=== PATIENT | male | born 1985 | race Caucasian/White ===

== ENCOUNTER 2018-09-05 23:43 | Emergency (ER) | payer BC ==
[2018-09-06 00:31] LABS: ABS Basophils 0 10^3/ul (0-0.2); ABS Eosinophils 0.1 10^3/ul (0-0.6); ABS Lymphocytes 1.9 10^3/ul (1.0-4.8); ABS Monocytes 0.5 10^3/ul (0-0.8); ABS Neutrophils 2.6 10^3/ul (1.5-7.7); ABS Nucleated RBC 0 10^3/ul; Eosinophil % 1.4 %; Hematocrit 41 % (42-52); Lymphocyte % 36.8 %; Mean Corpuscular HGB Conc 34 g/dl (31-36); Mean Corpuscular Hemoglobin 32 pg (27-31); Mean Corpuscular Volume 93 fL (80-94); Mean Platelet Volume 8.9 fL (7.4-10.4); Nucleated Red Blood Cells % 0.4; Platelet Count 263 10^3/ul (150-450); Red Blood Count 4.36 10^6/ul (4.00-5.40); Red Cell Distribution Width 13 % (10.5-15)
[2018-09-06 00:32] LABS: INR 0.94 (0.77-1.02)
[2018-09-06 00:35] LABS: EGFR Non-African American 89.1 (>60)
[2018-09-06] MEDS ORDERED: LORazepam TAB(*) 1 MG PO ONE (01:23)
--- NOTE | 2018-09-06 02:29 | ED ---
HPI Chest Pain - HPI Summary HPI Summary: The pt is a 33 y.o male presenting to the [facility] with a chief complaint of chest pain. The pt was accompanied by a female blocker polishing. He states the onset of the chest pain was at 2230. PMHx includes prehypertension. He denies PMHx of other cardiac diseases. The chest pain is discrete at the sternum. He has a hx of anxiety and has been on antidepressants previously. The patient denies SI and HI. No hx of smoking was reported and no use of recreational drug was reported as well. No major surgeries in the past were reported as well. Symptoms are aggravated by nothing and symptoms are alleviated by nothing. - History of Current Complaint Chief Complaint: EDChestWallPain Time Seen by Provider: 09/05/18 23:57 Hx Obtained From: Patient Onset/Duration: Started Hours Ago Initial Severity: Mild Current Severity: Mild Pain Intensity: 2 Pain Scale Used: 0-10 Numeric Chest Pain Location: Mid Sternal Aggravating Factor(s): Nothing Alleviating Factor(s): Nothing Associated Signs and Symptoms: Positive: Chest Pain, Anxiety, Shortness of Breath - Allergy/Home Medications Allergies/Adverse Reactions: Allergies Allergy/AdvReac Type Severity Reaction Status Date / Time MS Penicillins [Penicillins] Allergy Hives Verified 09/05/18 23:50 PMH/Surg Hx/FS Hx/Imm Hx Endocrine/Hematology History: Denies: Hx Diabetes, Hx Thyroid Disease Cardiovascular History: Denies: Hx Hypertension Respiratory History: Denies: Hx Asthma, Hx Chronic Obstructive Pulmonary Disease (COPD) GI History: Denies: Hx Ulcer - Surgical History Surgery Procedure, Year, and Place: wisdon teeth extraction - Immunization History Date of Tetanus Vaccine: UTD Infectious Disease History: No Infectious Disease History: Denies: Hx Hepatitis, Hx Human Immunodeficiency Virus (HIV), Traveled Outside the US in Last 30 Days - Family History Family History: Per EMR from May 2015, negative cardiac/dm/htn - Social History Alcohol Use: None Hx Substance Use: No Substance Use Type: Reports: None Hx Tobacco Use: Yes Smoking Status (MU): Former Smoker Type: Smokeless Tobacco Review of Systems Constitutional: Negative Eyes: Negative ENT: Negative Positive: Chest Pain Positive: Shortness Of Breath Gastrointestinal: Negative Genitourinary: Negative Musculoskeletal: Negative Skin: Negative Neurological: Negative Psychological: Other - Negative SI and HI All Other Systems Reviewed And Are Negative: Yes Physical Exam - Summary Physical Exam Summary: GENERAL: Patient is a well-developed and nourished Male who is lying comfortable in the stretcher. Patient is not in any acute respiratory distress. Flat Affect HEAD AND FACE: Normocephalic EYES: PERRLA, EOMI x 2. EARS: Hearing grossly intact. MOUTH: Oropharynx within normal limits. NECK: Supple, trachea is midline, no adenopathy, no JVD, no carotid bruit. CHEST: Symmetric, no tenderness at palpation LUNGS: Clear to auscultation bilaterally. No wheezing or crackles. CVS: Regular rate and rhythm, S1 and S2 present, no murmurs or gallops appreciated. ABDOMEN: Soft, non-tender. Bowel sounds are normal. No abdominal abnormal pulsations. EXTREMITIES: Full ROM in all major joints, no edema, no cyanosis or clubbing. NEURO: Alert and oriented x 3. No acute neurological deficits. Speech is normal and follows commands. SKIN: Dry and warm Triage Information Reviewed: Yes Vital Signs On Initial Exam: Initial Vitals Temp Pulse Resp BP Pulse Ox 98.4 F 70 18 159/102 98 09/05/18 23:47 09/05/18 23:47 09/05/18 23:47 09/05/18 23:47 09/05/18 23:47 Vital Signs Reviewed: Yes Diagnostics - Vital Signs Vital Signs Temp Pulse Resp BP Pulse Ox 09/06/18 01:37 16 09/06/18 01:01 69 134/95 96 09/06/18 01:00 70 96 09/06/18 00:31 72 140/97 97 09/06/18 00:02 80 99 09/06/18 00:01 159/114 09/05/18 23:47 98.4 F 70 18 159/102 98 - Laboratory Lab Results: Lab Results 09/06/18 09/06/18 09/06/18 Range/Units 00:08 00:08 00:08 WBC 5.0 (3.5-10.8) 10^3/ul RBC 4.36 (4.00-5.40) 10^6/ul Hgb 14.0 (14.0-18.0) g/dl Hct 41 L (42-52) % MCV 93 (80-94) fL MCH 32 H (27-31) pg MCHC 34 (31-36) g/dl RDW 13 (10.5-15) % Plt Count 263 (150-450) 10^3/ul MPV 8.9 (7.4-10.4) fL Neut % (Auto) 52.0 % Lymph % (Auto) 36.8 % Wayne % (Auto) 9.0 % Eos % (Auto) 1.4 % Baso % (Auto) 0.8 % Absolute Neuts (auto) 2.6 (1.5-7.7) 10^3/ul Absolute Lymphs (auto) 1.9 (1.0-4.8) 10^3/ul Absolute Monos (auto) 0.5 (0-0.8) 10^3/ul Absolute Eos (auto) 0.1 (0-0.6) 10^3/ul Absolute Basos (auto) 0 (0-0.2) 10^3/ul Absolute Nucleated RBC 0 10^3/ul Nucleated RBC % 0.4 INR (Anticoag Therapy) (0.77-1.02) APTT (26.0-36.3) seconds Sodium 137 (135-145) mmol/L Potassium 3.3 L (3.5-5.0) mmol/L Chloride 106 (101-111) mmol/L Carbon Dioxide 25 (22-32) mmol/L Anion Gap 6 (2-11) mmol/L BUN 22 (6-24) mg/dL Creatinine 0.97 (0.67-1.17) mg/dL Est GFR ( Amer) 107.9 (>60) Est GFR (Non-Af Amer) 89.1 (>60) BUN/Creatinine Ratio 22.7 H (8-20) Glucose 153 H (70-100) mg/dL Lactic Acid 0.7 (0.5-2.0) mmol/L Calcium 9.3 (8.6-10.3) mg/dL Magnesium 2.1 (1.9-2.7) mg/dL Total Bilirubin 0.40 (0.2-1.0) mg/dL AST 19 (13-39) U/L ALT 17 (7-52) U/L Alkaline Phosphatase 50 (34-104) U/L Troponin I 0.00 (<0.04) ng/mL Total Protein 6.6 (6.4-8.9) g/dL Albumin 4.5 (3.2-5.2) g/dL Globulin 2.1 (2-4) g/dL Albumin/Globulin Ratio 2.1 (1-3) 09/06/18 Range/Units 00:08 WBC (3.5-10.8) 10^3/ul RBC (4.00-5.40) 10^6/ul Hgb (14.0-18.0) g/dl Hct (42-52) % MCV (80-94) fL MCH (27-31) pg MCHC (31-36) g/dl RDW (10.5-15) % Plt Count (150-450) 10^3/ul MPV (7.4-10.4) fL Neut % (Auto) % Lymph % (Auto) % Wayne % (Auto) % Eos % (Auto) % Baso % (Auto) % Absolute Neuts (auto) (1.5-7.7) 10^3/ul Absolute Lymphs (auto) (1.0-4.8) 10^3/ul Absolute Monos (auto) (0-0.8) 10^3/ul Absolute Eos (auto) (0-0.6) 10^3/ul Absolute Basos (auto) (0-0.2) 10^3/ul Absolute Nucleated RBC 10^3/ul Nucleated RBC % INR (Anticoag Therapy) 0.94 (0.77-1.02) APTT 30.1 (26.0-36.3) seconds Sodium (135-145) mmol/L Potassium (3.5-5.0) mmol/L Chloride (101-111) mmol/L Carbon Dioxide (22-32) mmol/L Anion Gap (2-11) mmol/L BUN (6-24) mg/dL Creatinine (0.67-1.17) mg/dL Est GFR ( Amer) (>60) Est GFR (Non-Af Amer) (>60) BUN/Creatinine Ratio (8-20) Glucose (70-100) mg/dL Lactic Acid (0.5-2.0) mmol/L Calcium (8.6-10.3) mg/dL Magnesium (1.9-2.7) mg/dL Total Bilirubin (0.2-1.0) mg/dL AST (13-39) U/L ALT (7-52) U/L Alkaline Phosphatase (34-104) U/L Troponin I (<0.04) ng/mL Total Protein (6.4-8.9) g/dL Albumin (3.2-5.2) g/dL Globulin (2-4) g/dL Albumin/Globulin Ratio (1-3) Result Diagrams: 09/06/18 00:08 09/06/18 00:08 Lab Statement: Any lab studies that have been ordered have been reviewed, and results considered in the medical decision making process. - Radiology Chest X-ray Summary of Radiographic Findings: Chest X-ray reveals no acute processes as per ED Physician. - EKG 0022 Summary of EKG Findings: An EKG at 0022 reveals normal sinus rhythm at 70 bpm and PACs Chest Pain Course/Dx - Course Course Of Treatment: The pt is a 33 y.o male presenting to the [facility] with a chief complaint of chest pain. The patient was given a chest X-ray and an EKG in the [facility] as well as blood work. The workup is unremarkable including 2 sets of troponin and d-dimer. Patient given 1 mg of Ativan by mouth and reports much improvement. The pt will dx with chest pain. Results discussed the patient. Patient will follow up with cardiology in his PCP. - Diagnoses Provider Diagnoses: Chest pain Discharge - Sign-Out/Discharge Documenting (check all that apply): Patient Departure - Discharge Home - Discharge Plan Condition: Stable Disposition: HOME Patient Education Materials: Chest Pain (ED), Anxiety (ED), Panic Attack (ED) Referrals: Keren Arce MD [Primary Care Provider] - Juancarlos Sabillon DO [Medical Doctor] - Additional Instructions: Follow up with motor equipment captain in 1-3 days. RETURN TO THE EMERGENCY DEPARTMENT FOR CHANGING OR WORSENING SYMPTOMS. - Billing Disposition and Condition Condition: STABLE Disposition: Home - Attestation Statements Document Initiated by Scribe: Yes Documenting Scribe: Eric Phillips Provider For Whom Scribe is Documenting (Include Credential): Dr. Danay Younger Scribe Attestation: Eric Rooney, adrianoed for Dr. Danay Younger on 09/06/18 at 0554. Scribe Documentation Reviewed: Yes Provider Attestation: The documentation as recorded by the scribe, Eric Phillips accurately reflects the service I personally performed and the decisions made by me, Dr. Danay Younger Status of Scribe Document: Viewed
[2018-09-06] MEDS ORDERED: Potassium Chlor TAB* 20 MEQ TAB.ER PO ONE (02:58)
[2018-09-06 04:42] VITALS: BP 137/84
== END 2018-09-06 04:10 | disposition home or self-care (01) ==
LOC: ED 23:43
DX: R07.89 Other chest pain (principal); R06.02 Shortness of breath; F41.9 Anxiety disorder, unspecified; R05 Cough; Z88.0 Allergy status to penicillin; Z87.891 Personal history of nicotine dependence
CPT/HCPCS: 36415; 71045; 80053; 83605; 83735; 84484; 85025; 85379; 85610; 85730; 93005; 99283; A9270-GY

== ENCOUNTER 2018-12-23 13:32 | Emergency (ER) | payer OTHER ==
--- NOTE | 2018-12-23 16:19 | ED ---
Skin Complaint - HPI Summary HPI Summary: Pt. is a 33 y.o male who presents to the ER for evaluation after a body fluid exposure. 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 Pt. states he was arresting a pt. today and noted there was an open bleeding wound to source pt.'s hand. Pt. then noticed a small amount of blood to his left thumb. Pt. notes he has a small cut to his left thumb and source pt.'s blood was right next to cut. Pt. states he is unaware if source pt. blood came into contact with his open wound. Pt, states that source pt. states he is positive for Hep. C. Pt. has no significant past medical hx. Immunizations are up to date. Symptoms are moderate in severity. No current modifying factors. - History of Current Complaint Chief Complaint: EDExposureBodyFluid Time Seen by Provider: 12/23/18 15:57 Stated Complaint: BLOOD EXPOSER Pain Intensity: 0 - Allergy/Home Medications Allergies/Adverse Reactions: Allergies Allergy/AdvReac Type Severity Reaction Status Date / Time Penicillins Allergy Hives Verified 12/23/18 13:45 Home Medications: Home Medications Budesonide/Formote 80/4.5(NF) [Symbicort 80/4.5 (NF)] 2 puff INH BID 12/23/18 [ History Confirmed 12/23/18] Pantoprazole TAB * [Protonix TAB*] 40 mg PO DAILY 12/23/18 [History Confirmed ] PMH/Surg Hx/FS Hx/Imm Hx Previously Healthy: Yes Endocrine/Hematology History: Denies: Hx Diabetes, Hx Thyroid Disease Cardiovascular History: Denies: Hx Hypertension Respiratory History: Denies: Hx Asthma, Hx Chronic Obstructive Pulmonary Disease (COPD) GI History: Denies: Hx Ulcer - Surgical History Surgery Procedure, Year, and Place: wisdon teeth extraction - Immunization History Date of Tetanus Vaccine: UTD Infectious Disease History: No Infectious Disease History: Denies: Hx Hepatitis, Hx Human Immunodeficiency Virus (HIV), Traveled Outside the US in Last 30 Days - Family History Known Family History: Positive: None Family History: Per EMR from May 2015, negative cardiac/dm/htn - Social History Occupation: Employed Full-time Lives: With Family Alcohol Use: None Hx Substance Use: No Substance Use Type: Reports: None Hx Tobacco Use: Yes Smoking Status (MU): Former Smoker Type: Smokeless Tobacco Review of Systems Positive: Other - wound to left thumb All Other Systems Reviewed And Are Negative: Yes Physical Exam Triage Information Reviewed: Yes Vital Signs On Initial Exam: Initial Vitals Temp Pulse Resp BP Pulse Ox 98.6 F 79 16 158/109 99 12/23/18 13:43 12/23/18 13:43 12/23/18 13:43 12/23/18 13:43 12/23/18 13:43 Vital Signs Reviewed: Yes Appearance: Positive: Well-Appearing - Pt. sitting in chair in N[place]. Skin: Positive: Warm, Dry, Other - Superficial wound noted to distal left thumb. Head/Face: Positive: Normal Head/Face Inspection Eyes: Positive: Normal, EOMI Neck: Positive: Supple Neurological: Positive: Normal, CN Intact II-III Psychiatric: Positive: Affect/Mood Appropriate Diagnostics - Vital Signs Vital Signs Temp Pulse Resp BP Pulse Ox 12/23/18 13:43 98.6 F 79 16 158/109 99 - Laboratory Result Diagrams: 12/23/18 16:37 12/23/18 16:37 Lab Statement: Any lab studies that have been ordered have been reviewed, and results considered in the medical decision making process. Course/Dx - Course Course Of Treatment: Pt. presenting for evaluation of potential exposure to blood. Discussed risk vs benefit of prophylactic treatment. PEP was consulted as well. I spoke with Dr. Nicolas Agarwal and he states that transmission risk is low but if pt. is unsure if his wound came into contact with source pt. blood and if pt. wished to have prophylactic treatment then it would be appropriate. Pt. wishes to continue with prophylactic treatment. Protocol antivirals were administered and dispensed and rx sent to pharmacy. Pt. to f.u with Dr. Yepez for further testing and treatment. - Diagnoses Provider Diagnoses: Exposure to blood or body fluid Discharge - Sign-Out/Discharge Documenting (check all that apply): Patient Departure Patient Received Moderate/Deep Sedation with Procedure: No - Discharge Plan Condition: Good Disposition: HOME Prescriptions: Raltegravir* [Isentress*] 400 mg PO BID #46 tab Tenofovir/Emtricitab 200/300 * [Truvada 200/300 mg*] 1 tab PO DAILY #23 tab Patient Education Materials: Postexposure Prophylaxis (ED) Referrals: Lucho RIDER,Poncho Basurto [Medical Doctor] - Rafa Nolasco MD [Primary Care Provider] - Additional Instructions: Call Dr. Yepez's office tomorrow for a close follow up appointment for further blood work and treatment if needed Take mediation as directed Return to ER if symptoms change or worsen - Billing Disposition and Condition Condition: GOOD Disposition: Home - Attestation Statements Provider Attestation: I was available for consult. This patient was seen by the MALIA. The patient was not presented to, seen by, or examined by me. -Anton
[2018-12-23 16:46] LABS: ABS Basophils 0 10^3/ul (0-0.2); ABS Eosinophils 0 10^3/ul (0-0.6); ABS Lymphocytes 1.4 10^3/ul (1.0-4.8); ABS Monocytes 0.4 10^3/ul (0-0.8); ABS Neutrophils 3.4 10^3/ul (1.5-7.7); ABS Nucleated RBC 0 10^3/ul; Eosinophil % 0.7 %; Hematocrit 44 % (36-46); Lymphocyte % 26.4 %; Mean Corpuscular HGB Conc 34 g/dL (31-36); Mean Corpuscular Hemoglobin 32 pg (27-31); Mean Corpuscular Volume 93 fL (80-94); Mean Platelet Volume 8.2 fL (7.4-10.4); Nucleated Red Blood Cells % 0.1; Platelet Count 269 10^3/uL (150-450); Red Blood Count 4.75 10^6 /uL (4.18-5.48); Red Cell Distribution Width 13 % (10.5-15); White Blood Count 5.3 10^3/uL (3.5-10.8)
[2018-12-23] MEDS ORDERED: Raltegravir* 400 MG TAB PO ONE ×2 (16:58→18:00)
[2018-12-23] MEDS ORDERED: Tenofovir/Emtricitab 200/300 * TAB PO ONE ×2 (16:58→18:00)
[2018-12-23 17:09] LABS: Albumin 5.1 g/dL (3.2-5.2); Albumin/Globulin Ratio 2.1 (1-3); Calcium 9.5 mg/dL (8.6-10.3); EGFR African American 104.1 (>60); EGFR Non-African American 86.1 (>60); Globulin 2.4 g/dL (2-4); Potassium 3.8 mmol/L (3.5-5.0); Total Bilirubin 0.6 mg/dL (0.2-1.0); Total Protein 7.5 g/dL (6.4-8.9)
[2018-12-23 17:23] LABS: Rapid HIV 1 Nonreactive (Nonreactive)
[2018-12-23 17:58] VITALS: BP 157/104
[2018-12-24 09:41] LABS: Hepatitis B Surface AB Immune (Immune)
[2018-12-24 10:33] LABS: Hepatitis B Surface Antigen Nonreactive (Nonreactive)
[2018-12-25 14:19] LABS: Hepatitis C Antibody Nonreactive (Nonreactive)
== END 2018-12-23 17:56 | disposition home or self-care (01) ==
LOC: ED 13:32
DX: Z77.21 Contact with and (suspected) exposure to potentially hazardous body fluids (principal); Z88.0 Allergy status to penicillin; Z87.891 Personal history of nicotine dependence
CPT/HCPCS: 36415; 80053; 85025; 86703; 86706; 86803; 87340; 99283

== ENCOUNTER 2019-08-09 08:58 | Emergency (ER) | payer BC, OTHER ==
--- OUTSIDE RECORDS SUMMARY | 2019-08-09 09:07 | XMS REPORT | Summary of Care ---
:1985 Author Organization [facility] Address [address] [place] [address] Care Team Providers Name Role Phone Rafa Nolasco Primary Care Provider Reason for Referral Medication Prior Authorization (Routine) Status Reason Specialty Diagnoses / Procedures Referred By Contact Referred To Contact Closed Rafa Nolasco MD [address] [place] [address] Reason for Visit Reason Comments Low Back Pain Patient states his low back pain from compressions is getting worse and he would like a plan . Encounter Details Date Type Department Care Team Description 07/22/2019 Office Visit [facility] Rafa Nolasco, Dyspepsia ( Primary Dx); Medicine Chronic bilateral low back pain without sciatica; [address] [facility] [address] [place] [address] White coat syndrome [place] of [place] [address] [phone] Allergies Active Allergy Reactions Severity Noted Date Comments Penicillin G Rash 07/31/2016 documented as of this encounter (statuses as of 07/22/2019) Medications Medication Sig Dispensed Refills Start End Date Status Date Clindamycin 1 Appl by 50 g 4 Active Phos-Benzoyl Perox Apply 8 1-5 % Apply externally externally Gel route EVERY BEDTIME. albuterol HFA Take 2 Puffs 1 Inhaler 0 Active (VENTOLIN HFA) 108 by inhalation 8 (90 Base) MCG/ACT EVERY FOUR Inhalation Aero HOURS SolnIndications: NEEDED Acute bronchitis, (shortness of unspecified organism breath, cough or wheeze). budesonide-formotero Take 2 INHL by 1 Inhaler 5 Active l fumarate inhalation 9 (SYMBICORT) 80-4.5 TWICE DAILY. MCG/ACT Inhalation Aerosol fluoxetine (PROZAC) Take 1 Cap by 90 Cap 5 02/11/20 Active 20 MG Oral Cap mouth DAILY. 9 20 fexofenadine-pseudoe Take 1 Tab by 30 Tab 5 Active phedrine (FRANKLYN-D) mouth DAILY. 9 60-120 MG Oral TABLET SR 12 HR Omeprazole delayed Take 20 mg by 90 Cap 3 Active rel cap 20 MG Oral mouth DAILY. 9 CAPSULE DELAYED RELEASEIndications: Gastroesophageal reflux disease without esophagitis lidocaine 1 Patch by 30 Patch 0 Active transdermal patch Topical route 9 (LIDODERM) 5 % Apply TWO TIMES externally DAILY PatchIndications: NEEDED (back Spondylosis of pain). 12 lumbar region hours on and without myelopathy 12 hours off or radiculopathy HYDROcodone-acetamin Take 1 Tab by 40 Tab 0 Active ophen (NORCO) 5-325 mouth TWO 9 MG Oral Tab TIMES DAILY NEEDED (pain). Max Daily Amount: 2 Tabs. celeCOXIB (CELEBREX) Take 1 Cap by 30 Cap 0 08/21/20 Active 200 MG Oral Cap mouth DAILY 9 19 for 30 days. with food Sildenafil Citrate Take 1 Tab by 6 Tab 5 07/22/20 Discontinued 100 MG Oral Tab mouth DAILY 7 19 NEEDED (sex). pantoprazole Take 1 Tab by 90 Tab 4 07/22/20 Discontinued (PROTONIX) 40 MG mouth DAILY. 9 19 Oral Tab EC etodolac (LODINE) Take 400 mg by 60 Tab 0 07/22/20 Discontinued 400 MG Oral mouth EVERY 9 19 TabIndications: EIGHT HOURS Spondylosis of NEEDED (back lumbar region pain). without myelopathy or radiculopathy HYDROcodone-acetamin Take 1 Tab by 28 Tab 0 07/22/20 Discontinued ophen (NORCO) 5-325 mouth EVERY 9 19 (Reorder) MG Oral Tab SIX HOURS NEEDED (pain). Max Daily Amount: 4 Tabs. documented as of this encounter (statuses as of 07/22/2019) Active Problems Problem Noted Date Mild persistent allergic asthma 12/11/2018 Spondylosis of lumbar region without myelopathy or radiculopathy 11/04/2016 White coat syndrome without diagnosis of hypertension 07/31/2016 Gastroesophageal reflux disease without esophagitis 07/31/2016 documented as of this encounter (statuses as of 07/22/2019) Social History Tobacco Use Types Packs/Day Years Used Date Never Smoker Smokeless Tobacco: Current User Chew Alcohol Use Drinks/Week oz/Week Comments No Sex Assigned at Date Recorded Not on file Job Start Date Occupation Industry Not on file Not on file Not on file Travel History Travel Start Travel End No recent travel history available. documented as of this encounter Last Filed Vital Signs Vital Sign Reading Time Taken Comments Blood Pressure 138/86 07/22/2019 11:17 AM EDT Pulse 74 07/22/2019 9:36 AM EDT Temperature - - Respiratory Rate - - Oxygen Saturation - - Inhaled Oxygen Concentration - - Weight 94.3 kg (208 lb) 07/22/2019 9:36 AM EDT Height 184.2 cm (6' 0.5") 07/22/2019 9:36 AM EDT Body Mass Index 27.82 07/22/2019 9:36 AM EDT documented in this encounter Patient Instructions Patient InstructionsRafa Nolasco MD - 07/22/2019 9:40 AM EDTTrial celebrex in am like ibuprofen but easier on the stomach Hydrocodone no more than twice daily And do not take daily Do the core Exercises Ok to use ibuprofen with hydrocodone Follow up me 6 weeks documented in this encounter Progress Notes Rafa Nolasco MD - 07/22/2019 9:40 AM EDT Jaswant Pearson is a 33-y.o. 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 Normal thought content, speech, affect, mood and dress are noted. The patient's pain level on a 0-10 visual analog pain scale is 5/10. BP 138/86 Pulse 74 Ht 6' 0.5" (1.842 m) Wt 208 lb (94.3 kg) BMI 27.82 kg/m2 I spent 25 minutes with the patient, greater than half of this in direct face to face counseling addressing the current condition and the plan of care. ICD-9-CM ICD-10-CM 1. Dyspepsia use proton pump inhibitor trial of celebrex instead of ibuprofen to reduce gastric sideeffects 536.8 R10.13 2. Chronic bilateral low back pain without sciatica begin core muscle stretching and strengthening program I ave him beginner and advance core muscle set instructions from [facility] he has done these in the past and will start daily, hydrocodone refill small amount I warned the patient about therisk of sedation and drug dependency with detention use of this medication. Follow up 1-2 month 724.2 M54.5 338.29 G89.29 3. White coat syndrome without diagnosis of hypertension 796.2 R03.0 Patient Instructions Trial celebrex in am like ibuprofen but easier on the stomach Hydrocodone no more than twice daily And do not take daily Do the core Exercises Ok to use ibuprofen with hydrocodone Follow up me 6 weeks documented in this encounter Plan of Treatment Date Type Specialty Care Team Description 08/31/2019 Office Visit Internal Medicine Rafa Nolasco MD [address] [place] [address] [phone] Health Maintenance Due Date Last Done Comments PNEUMOCOCCAL 0-64 YRS (1 of 1 - 1991 PPSV23) HIV SCREENING 2000 DEPRESSION SCREENING 07/22/2020 07/22/2019 HPV IMMUNIZATION SERIES Aged Out No longer eligible based on patient's age to complete this topic MENINGOCOCCAL VACCINE IMM Aged Out No longer eligible based on patient's age to complete this topic documented as of this encounter Goals Goal Patient Goal Associated Recent Patient-Stated? Author Type Problems Progress Blood Pressure Blood Pressure 138/86 No [place], < 140/90 (07/22/2019 Rafa Childers, 11:17 AM EDT) Note: This is an individualized treatment (blood pressure) goal for Jaswant Pearson: Displayed above (on the left) is your goal for blood pressure control. Your most recent blood pressure is also shown above, on the right. You should try to achieve blood pressures that are lower than your goal listed above (on the left). Take all prescribed medications as Self-management Rafa Herrera MD directed Note: This is an individualized self-management goal for Jaswant Pearson: Please take all prescribed medications as directed. 1. Do not skip doses. If you cannot afford your medications, talk with your doctor. 2. Use a pill reminder system such as a pill box if needed. Your pharmacist can help you with this. 3. Contact your Pharmacy 5 days before your medication runs out. If you cannot take your medications for any reasons, talk with your doctor. 4. Please bring all of your medication bottles and inhalers (or a list of all your medications/inhalers) with you to every visit. Potential barriers to meeting all of your care plan goals will continue to be addressed on an ongoing basis. documented as of this encounter Results Not on filedocumented in this encounter Visit Diagnoses Diagnosis Dyspepsia - Primary Dyspepsia and other specified disorders of function of stomach Chronic bilateral low back pain without sciatica White coat syndrome without diagnosis of hypertension Elevated blood pressure reading without diagnosis of hypertension documented in this encounter Insurance Payer Benefit Plan / Subscriber ID Effective Dates Phone Address Type Group ASHELY JONES xxxxxxxxxxxx 2018-Present [employer]hely CISNER[employer] PPO (Work) documented as of this encounter
--- OUTSIDE RECORDS SUMMARY | 2019-08-09 09:07 | XMS REPORT | Summary of Care ---
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 Clindamycin 1 Appl by Apply 50 g 4 11/05/2017 Active Phos-Benzoyl Perox 1-5 externally route % Apply externally Gel EVERY BEDTIME. albuterol HFA (VENTOLIN Take 2 Puffs by 1 Inhaler 0 08/15/2018 Active HFA) 108 (90 Base) inhalation EVERY MCG/ACT Inhalation Aero FOUR HOURS SolnIndications: Acute NEEDED bronchitis, unspecified (shortness of organism breath, cough or wheeze). budesonide-formoterol Take 2 INHL by 1 Inhaler 5 12/11/2018 Active fumarate (SYMBICORT) inhalation TWICE 80-4.5 MCG/ACT DAILY. Inhalation Aerosol pantoprazole (PROTONIX) Take 1 Tab by 90 Tab 4 12/11/2018 Active 40 MG Oral Tab EC mouth DAILY. fluoxetine (PROZAC) 20 Take 1 Cap by 90 Cap 5 02/11/2019 02/11/2020 Active MG Oral Cap mouth DAILY. fexofenadine-pseudoephe Take 1 Tab by 30 Tab 5 02/11/2019 Active drine (FRANKLYN-D) mouth DAILY. 60-120 MG Oral TABLET SR 12 HR Omeprazole delayed rel Take 20 mg by 90 Cap 3 05/13/2019 Active cap 20 MG Oral CAPSULE mouth DAILY. DELAYED RELEASEIndications: Gastroesophageal reflux disease without esophagitis etodolac (LODINE) 400 Take 400 mg by 60 Tab 0 06/28/2019 Active MG Oral TabIndications: mouth EVERY Spondylosis of lumbar EIGHT HOURS region without NEEDED (back myelopathy or pain). radiculopathy lidocaine transdermal 1 Patch by 30 Patch 0 06/28/2019 Active patch (LIDODERM) 5 % Topical route Apply externally TWO TIMES DAILY PatchIndications: NEEDED (back Spondylosis of lumbar pain). 12 hours region without on and 12 hours myelopathy or off radiculopathy documented as of this encounter (statuses as of 06/28/2019) Active Problems Problem Noted Date Mild persistent allergic asthma 12/11/2018 Spondylosis of lumbar region without myelopathy or radiculopathy 11/04/2016 White coat syndrome without diagnosis of hypertension 07/31/2016 Gastroesophageal reflux disease without esophagitis 07/31/2016 documented as of this encounter (statuses as of 06/28/2019) Social History Tobacco Use Types Packs/Day Years [...] Sign Reading Time Taken Comments Blood Pressure - - Pulse - - Temperature 36 06/28/2019 8:37 AM EDT C (96.8 F) Respiratory Rate - - Oxygen Saturation - - Inhaled Oxygen Concentration - - Weight 97.3 kg (214 lb 6.4 oz) 06/28/2019 8:37 AM EDT Height 182.9 cm (6') 06/28/2019 8:37 AM EDT Body Mass Index 29.08 06/28/2019 8:37 AM EDT documented in this encounter Patient Instructions Patient InstructionsLilliana Stauffer FNP - 06/28/2019 8:40 AM EDTContinue with Chiropractor Medication as directed - Lodine - take with 1000 mg Tylenol 3 times a day as needed for pain Use Lidoderm patch twice a day for ongoing relief Call if pain persists - consider re check of MRI documented in this encounter Progress Notes Lilliana Stauffer FNP - 06/28/2019 8:40 AM EDT PATIENT: Jaswant Pearson : 1985 DATE OF SERVICE: 06/28/2019 CHIEF COMPLAINT: Chief Complaint Patient presents with Follow Up medication change for ongoing back pain for 3+ years Subjective HISTORY OF PRESENT ILLNESS: Jaswant Pearson is a 33-y.o. male. HPI Ongoing back pain - uses Ibuprofen 1200 mg at a time - not helping. Sees Chiropractor every week with some improvement. MRI done 2016 - bulging discs Denies change in bowel or bladder function Past Medical History: Diagnosis Date Asthma exacerbated by URI History reviewed. No pertinent family history. Current Outpatient Medications Medication Sig albuterol HFA (VENTOLIN HFA) 108 (90 Base) MCG/ACT Inhalation Aero Soln Take 2 Puffs by inhalation EVERY FOUR HOURS NEEDED (shortness of breath, cough or wheeze). budesonide-formoterol fumarate (SYMBICORT) 80-4.5 MCG/ACT Inhalation Aerosol Take 2 INHL by inhalation TWICE DAILY. Clindamycin Phos-Benzoyl Perox 1-5 % Apply externally Gel 1 Appl by Apply externally route EVERY BEDTIME. etodolac (LODINE) 400 MG Oral Tab Take 400 mg by mouth EVERY EIGHT HOURS NEEDED (back pain). fexofenadine-pseudoephedrine (FRANKLYN-D) 60-120 MG Oral TABLET SR 12 HR Take 1 Tab by mouth DAILY. fluoxetine (PROZAC) 20 MG Oral Cap Take 1 Cap by mouth DAILY. lidocaine transdermal patch (LIDODERM) 5 % Apply externally Patch 1 Patch by Topical route TWO TIMES DAILY NEEDED (back pain). 12 hours on and 12 hours off Omeprazole delayed rel cap 20 MG Oral CAPSULE DELAYED RELEASE Take 20 mg by mouth DAILY. pantoprazole (PROTONIX) 40 MG Oral Tab EC Take 1 Tab by mouth DAILY. Sildenafil Citrate 100 MG Oral Tab Take 1 Tab by mouth DAILY NEEDED ( sex). No current facility-administered medications for this visit. Allergies Allergen Reactions Penicillin G Rash Social History Socioeconomic History Marital status: Spouse name: Not on file Number of children: Not on file Years of education: Not on file Highest education level: Not on file Occupational History Not on file Social Needs Financial resource strain: Not on file Food insecurity: Worry: Not on file Inability: Not on file Transportation needs: Medical: Not on file Non-medical: Not on file Tobacco Use Smoking status: Never Smoker Smokeless tobacco: Current User Types: Chew Substance and Sexual Activity Alcohol use: No Drug use: No Sexual activity: Yes Lifestyle Physical activity: Days per week: Not on file Minutes per session: Not on file Stress: Not on file Relationships Social connections: Talks on phone: Not on file Gets together: Not on file Attends oriental orthodox service: Not on file Active member of club or organization: Not on file Attends meetings of clubs or organizations: Not on file Relationship status: Not on file Intimate partner violence: Fear of current or ex partner: Not on file Emotionally abused: Not on file Physically abused: Not on file Forced sexual activity: Not on file Other Topics Concern Back Care Not Asked Bike Helmet Not Asked Blood Transfusions No Caffeine Concern No Exercise Yes Comment: gym and weight lifting work outs Hobby Hazards Not Asked International Travel No Service No Occupational Exposure Not Asked Seat Belt Yes Self-Exams Not Asked Sleep Concern No Special Diet No Stress Concern No Weight Concern No Social History Narrative Lives with girlfriend in [facility] No kids 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 Musculoskeletal: Positive for back pain and myalgias. Negative for falls. Neurological: Negative for tingling and weakness. Objective PHYSICAL EXAM: VITALS: Temp 96.8 F (36 C) (Tympanic) | Ht 6' (1.829 m) | Wt 214 lb 6.4 oz (97.3 kg) | BMI 29.08 kg/m Body mass index is 29.08 kg/m. Physical Exam Constitutional: He is oriented to person, place, and time. Vital signs are normal. He appears well-developed and well-nourished. HENT: Head: Normocephalic and atraumatic. Musculoskeletal: Normal range of motion. Lumbar back: He exhibits tenderness. He exhibits normal range of motion, no deformity and no spasm. Back: Neurological: He is alert and oriented to person, place, and time. No cranial nerve deficit or sensory deficit. Coordination and gait normal. Skin: Skin is warm and dry. No ecchymosis and no rash noted. No erythema. Vitals reviewed. ASSESSMENT / IMPRESSION: ICD-9-CM ICD-10-CM 1. Spondylosis of lumbar region without myelopathy or radiculopathy 721.3 M47.816 etodolac (LODINE) 400 MG Oral Tab lidocaine transdermal patch (LIDODERM) 5 % Apply externally Patch 2. Bulging lumbar disc 722.10 M51.26 Plan Continue with Chiropractor Medication as directed - Lodine - take with 1000 mg Tylenol 3 times a day as needed for pain Use Lidoderm patch twice a day for ongoing relief Call if pain persists - consider re check of MRI Author: SIDNEY Engle 06/28/2019 08:58 documented in this encounter Plan of Treatment Health Maintenance Due Date Last Done Comments PNEUMOCOCCAL 0-64 YRS (1 of - 1991 PPSV23) HIV SCREENING 2000 DEPRESSION SCREENING 11/05/2018 11/05/2017 HPV IMMUNIZATION SERIES Aged Out No longer eligible based on patient's age to complete this topic MENINGOCOCCAL VACCINE IMM Aged Out No longer eligible based on patient's age to complete this topic documented as of this encounter Goals Goal Patient Goal Associated Recent Patient-Stated? Author Type Problems Progress Blood Pressure Blood Pressure 138/74 No Ramsey, < 140/90 (12/11/2018 Rafa Childers, 4:03 PM EST) Note: This is an individualized treatment (blood [...] filedocumented in this encounter Visit Diagnoses Diagnosis Spondylosis of lumbar region without myelopathy or radiculopathy - Primary Lumbosacral spondylosis without myelopathy Bulging lumbar disc Displacement of lumbar intervertebral disc without myelopathy documented in this encounter Insurance Payer Benefit Plan / Subscriber ID Effective Dates Phone Address Type Group ASHELY JONES xxxxxxxxxxxx 2018-Present Ashely CISNEROS PPO Guarantor Name Account Type Relation to Date of Phone Billing Patient Address Jaswant Pearson Personal/Family 1985 [phone] [id number] (Home) [place] (Work) documented as of this encounter"
[2019-08-09 09:09] VITALS: BP 153/109
--- NOTE | 2019-08-09 10:03 | UC ---
Nausea/Vomiting/Diarrhea HPI - HPI Summary HPI Summary: Pt is a 33 yo male presents to with his . Pt requested complete privacy regarding encounter. Pt states he is struggling with alcohol dependence. Pt was treated inpatient rehab 8 years ago. States had relapse 7 years ago. Pt reports was doing well until 1 year ago. At this time, he presented to the ED. Pt was given Ativan to treat withdrawal and detox at home. States his helped manage his meds. States this did not last long and currently his drinking "is too much." Pt has his first child due in 3 weeks and wants to be sober. states he has increased support from and parents at this time. Pt states has reached out to past sponsor and is attending meetings. States primarily drinks vodka. states last drink 36 hours ago apprx/ Feels slightly shaky and nausea.pt has never had seizures. pt denies fever, chills. No cp, sob. mild abd cramping. no diarrhea. no hematuria. 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 Medication reviewed. pt completed 28 days post exposure treatment spring following a work place exposure. Pt has not been tested or followed since - History of Current Complaint Chief Complaint: UCAbdominalPain Stated Complaint: ABD PAIN VOMITING DIARRHEA Time Seen by Provider: 08/09/19 09:37 Hx Obtained From: Patient, Family/Cvicu Rn, Medical Records Severity Currently: Moderate Pain Intensity: 6 - Allergies/Home Medications Allergies/Adverse Reactions: Allergies Allergy/AdvReac Type Severity Reaction Status Date / Time Penicillins Allergy Hives Verified 08/09/19 09:09 PMH/Surg Hx/FS Hx/Imm Hx Previously Healthy: Yes - Surgical History Surgical History: Yes Surgery Procedure, Year, and Place: [place] teeth extraction - Family History Known Family History: Positive: Non-Contributory Family History: Per EMR from May 2015, negative cardiac/dm/htn - Social History Occupation: Employed Full-time Lives: With Family Alcohol Use: Daily Substance Use Type: None Smoking Status (MU): Former Smoker Type: Smokeless Tobacco Review of Systems All Other Systems Reviewed And Are Negative: Yes Constitutional: Positive: Other - slightly shaky Gastrointestinal: Positive: Nausea. Negative: Vomiting Physical Exam - Summary Physical Exam Summary: Vital Signs Reviewed: Yes A+Ox3, quiet, appropriate. Not tremulous. initial poor eye contact - improved with history Eyes: Conjunctiva Clear, ANSELMO. EOM intact and full ENT: Hearing grossly normal TM x 2 clear, turbinates mmdry, lips dry, uvula midline, no exudate, no erythema Neck: Positive: Supple Respiratory: Positive: No respiratory distress, No accessory muscle use + CTA throughout no w/r Cardiovascular: RRR nl s1, s2 no m/r CBT <2 sec abd soft + BS nt/nd no guarding, no distension Musculoskeletal Exam: WATERS x 4 without difficulty Strength Intact, ROM Intact Neurological: Positive: Alert, + sensation throughout Psychological: Positive: Normal Response To examiner Skin: Positive: no rash, no ecchymosis, Triage Information Reviewed: Yes Vital Signs: Initial Vital Signs Temp 99 F 08/09/19 09:06 Pulse 83 08/09/19 09:06 Resp 18 08/09/19 09:06 BP 153/109 08/09/19 09:06 Pulse Ox 98 08/09/19 09:06 Naus/Vom/Diarrhea Course/Dx - Course Course Of Treatment: pt presents for assistance with alcohol use disorder and detox. Pt does not want inpatient care is concerned regarding discretness of care related to his career. Pt last drink approx 36 hours. reports nausea, no vomiting states feels mild shaky. no hallucinations. no history of seizures. pt's present and supportive Pt's BP elevated - related to todays visit I contact Dr. Luis Montenegro - [facility] in private office Discuss the patient's status - I will draw labs at today to include hiv, hep B, hep C - I will prescribe 8 tablets of librium 25mg tabs pt to take 2 tabs every 6 hours as needed for withdrawal - Dr Montenegro will see pt tomorrow at [facility] at 10:00am I reviewed this plan with pt and spouse. expressed appreciation,comfort and agreement with plan Pt given pt info guide regarding librium as he was not familiar - did discuss its potential for sedation Advised no ETOH while taking Encourage pt seek help in the ED if sx worsen or become non-manageable Rx change to [place] on [employer] from [place] - Differential Dx/Diagnosis Provider Diagnosis: Nausea and vomiting, Alcohol use disorder Condition At Discharge: Stable Discharge ED - Sign-Out/Discharge Documenting (check all that apply): Patient Departure All imaging exams completed and their final reports reviewed: No Studies - Discharge Plan Condition: Stable Disposition: HOME Prescriptions: chlordiazePOXIDE CAP* [Librium CAP*] 1 - 2 cap PO Q6HR PRN #8 cap MDD 8 PRN Reason: shaking, withdrawal chlordiazePOXIDE CAP* [Librium CAP*] 1 - 2 cap PO Q6HR PRN #8 cap MDD 8 PRN Reason: shakiness, withdrawal Patient Education Materials: Acute Nausea and Vomiting (ED), Alcohol Use Disorder (ED) Referrals: [facility] [Outside] (You have an appointment on 08/10/[address] Montenegro - he is expecting you Please contact the office if you are unable to keep this appointment ) Paco Montenegro MD [Medical Doctor] - Additional Instructions: - You have been prescribed Librium 25mg tablets to help with your symptoms. It is recommended you take 50mg every 6 hours as needed for your symptoms. - Do not drink alcohol while you are taking this medication/ Do not take other sedating medication such as Bendaryl while taking this medication - You had bloodwork drawn today. These results take 1-2 days to return - you will receive a call from a care cps team lead if there are concerning results - you have an appointment tomorrow with Dr. Montenegro at 10am - . - he will also be able to review your laboratory studies. [address], [address] [place], [place] [address] It is very important you keep this appointment - call the office if you are unable to attend If you have uncontrolled sx, vomiting, pain, confusion or any other concerns it is recommended you go to the emergency department for further evaluation and treatment - Billing Disposition and Condition Condition: STABLE Disposition: Home
[2019-08-09 12:59] LABS: ABS Eosinophils 0.1 10^3/ul (0-0.6); ABS Monocytes 0.4 10^3/ul (0-0.8); ABS Neutrophils 1.9 10^3/ul (1.5-7.7); Hematocrit 44 % (42-52); Hemoglobin 15.4 g/dL (14.0-18.0); Mean Corpuscular HGB Conc 35 g/dL (31-36); Mean Corpuscular Hemoglobin 32 pg (27-31); Mean Corpuscular Volume 93 fL (80-94); Mean Platelet Volume 8.6 fL (7.4-10.4); Nucleated Red Blood Cells % 0.1; Platelet Count 290 10^3/uL (150-450); Red Blood Count 4.78 10^6 /uL (4.18-5.48); Red Cell Distribution Width 12 % (10-15); White Blood Count 3.4 10^3/uL (3.5-10.8)
[2019-08-09 13:36] LABS: Albumin 5.1 g/dL (3.2-5.2); Albumin/Globulin Ratio 2.3 (1-3); BUN/Creatinine Ratio 14.3 (8-20); EGFR African American 127.3 (>60); EGFR Non-African American 105.2 (>60); Globulin 2.2 g/dL (2-4); Potassium 4.4 mmol/L (3.5-5.0); Total Bilirubin 1.4 mg/dL (0.2-1.0); Total Protein 7.3 g/dL (6.4-8.9)
[2019-08-09 15:43] LABS: HIV 4th Generation Nonreactive (Nonreactive)
[2019-08-09 15:51] LABS: Hepatitis B Surface Ab Immune (Immune); Hepatitis C Antibody Negative (Negative)
--- NOTE | 2019-08-10 07:19 | UC ---
- Progress Note Progress Note: He was seen yesterday and referred to [facility]. He does have follow up with Dr. Montenegro today. He has a mild increase in his bili and liver function tests, consistent with alcohol use. Advise that it is important that he follow up with Dr. Montenegro to review this. Course/Dx - Diagnoses Provider Diagnoses: Nausea and vomiting Discharge ED - Sign-Out/Discharge Documenting (check all that apply): Post-Discharge Follow Up All imaging exams completed and their final reports reviewed: No Studies - Discharge Plan Condition: Stable Disposition: HOME Prescriptions: chlordiazePOXIDE CAP* [Librium CAP*] 1 - 2 cap PO Q6HR PRN #8 cap MDD 8 PRN Reason: shaking, withdrawal chlordiazePOXIDE CAP* [Librium CAP*] 1 - 2 cap PO Q6HR PRN #8 cap MDD 8 PRN Reason: shakiness, withdrawal Patient Education Materials: Acute Nausea and Vomiting (ED), Alcohol Use Disorder (ED) Referrals: [facility] [Outside] (You have an appointment on 08/10/[address] Montenegro - he is expecting you Please contact the office if you are unable to keep this appointment ) Paco Montenegro MD [Medical Doctor] - Additional Instructions: - You have been prescribed Librium 25mg tablets to help with your symptoms. It is recommended you take 50mg every 6 hours as needed for your symptoms. - Do not drink alcohol while you are taking this medication/ Do not take other sedating medication such as Bendaryl while taking this medication - You had bloodwork drawn today. These results take 1-2 days to return - you will receive a call from a care steamtable worker if there are concerning results - you have an appointment tomorrow with Dr. Montenegro at 10am - . - he will also be able to review your laboratory studies. [address] [facility] [address], [address] [place], [place] [address] It is very important you keep this appointment - call the office if you are unable to attend If you have uncontrolled sx, vomiting, pain, confusion or any other concerns it is recommended you go to the emergency department for further evaluation and treatment - Billing Disposition and Condition Condition: STABLE Disposition: Home
== END 2019-08-09 11:05 | disposition home or self-care (01) ==
LOC: UCEAST 08:58
DX: R11.2 Nausea with vomiting, unspecified (principal); R10.9 Unspecified abdominal pain; Z88.0 Allergy status to penicillin; Z87.891 Personal history of nicotine dependence; Z72.89 Other problems related to lifestyle
CPT/HCPCS: 36415; 80053; 81003; 83690; 83735; 85025; 86706; 86803; 87389; 99212; G0463

== ENCOUNTER 2019-08-21 10:48 | Emergency (ER) | payer BC ==
[2019-08-21] MEDS ORDERED: LORazepam INJ* 2 MG/ML 1 ML VIAL IV PUSH ONE (11:13)
[2019-08-21] MEDS ORDERED: Lorazepam PYXIS KEY PRN (11:13)
[2019-08-21] MEDS ORDERED: Lorazepam PYXIS KEY ONE (11:19)
--- NOTE | 2019-08-21 11:23 | ED ---
Abdominal Pain/Male - HPI Summary HPI Summary: This patient is a 33-year-old male with a history of alcohol abuse and anxiety presenting to the ED with severe abdominal pain, insomnia, anxiety, nausea and vomiting over the past 3 days. His pain is diffuse, aching and cramping without radiation. Denies any back pain or urinary symptoms. Denies any hematemesis, hematochezia or melena. Last BM 2 days ago and was normal. Denies diarrhea or constipation. He states his last drink was 5 days ago. He was treated on 08/09/19 for alcohol withdrawal symptoms. At this time, patient was given 2 days prescribed Librium for his symptoms. Despite this, he continued to drink after his prescription was out. While he states his last drink was 5 days ago, he states his symptoms of abdominal pain, insomnia, anxiety just started 3 days ago. He is also endorsing severe anxiety over the fact that his is one week away from giving and feels he is not there to adequately support her. Symptoms are worse at night, better during the daytime. Patient continues to go to work daily, but feels he is not being productive due to his symptoms. He does feel that he has good support at home. He does endorse a history of "GI issues" but states this feels different. He states this is not similar to his prior episodes of GERD-like symptoms. He remains on omeprazole daily. Patient states he knows his abd pain is from his anxiety. He does not disclose immediately that he drinks alcohol regularly and does not state this is a likely reason for his symptoms, however, on further evaluation, pt does disclose he had been on medication for this recently. - History of Current Complaint Chief Complaint: EDAbdPain Stated Complaint: SEVERE ABDOMINAL PAIN PER PT Time Seen by Provider: 08/21/19 10:57 Hx Obtained From: Patient, Family/Transition Mgr Rn Onset/Duration: Sudden Onset Timing: Constant Severity Initially: Moderate Severity Currently: Moderate Pain Intensity: 7 Pain Scale Used: 0-10 Numeric Location: Diffuse Radiates: No Character: Cramping Aggravating Factor(s): Nothing Associated Signs And Symptoms: Positive: Negative - Risk Factors Testicular Torsion: Negative Cardiac Risk Factors: Negative - Allergies/Home Medications Allergies/Adverse Reactions: Allergies Allergy/AdvReac Type Severity Reaction Status Date / Time Penicillins Allergy Hives Verified 08/21/19 10:55 PMH/Surg Hx/FS Hx/Imm Hx Previously Healthy: Yes Endocrine/Hematology History: Denies: Hx Diabetes, Hx Thyroid Disease Cardiovascular History: Denies: Hx Hypertension Respiratory History: Denies: Hx Asthma, Hx Chronic Obstructive Pulmonary Disease (COPD) GI History: Denies: Hx Ulcer - Surgical History Surgery Procedure, Year, and Place: [place] teeth extraction - Immunization History Date of Tetanus Vaccine: UTD Hx Pertussis Vaccination: No Immunizations Up to Date: Yes Infectious Disease History: No Infectious Disease History: Denies: Hx Hepatitis, Hx Human Immunodeficiency Virus (HIV), Traveled Outside the [place] in Last 30 Days - Family History Known Family History: Positive: None, Non-Contributory Family History: Per EMR from May 2015, negative cardiac/dm/htn - Social History Occupation: Employed Full-time Lives: With Family Alcohol Use: Daily Hx Substance Use: No Substance Use Type: Reports: None Hx Tobacco Use: Yes Smoking Status (MU): Former Smoker Type: Smokeless Tobacco Review of Systems Negative: Fever, Chills, Fatigue, Skin Diaphoresis Negative: Chest Pain Negative: Shortness Of Breath, Cough Positive: Abdominal Pain, Vomiting, Nausea. Negative: Diarrhea Genitourinary: Negative Positive: no symptoms reported, see HPI Negative: Arthralgia, Myalgia Negative: Headache Positive: Anxious All Other Systems Reviewed And Are Negative: Yes Physical Exam Triage Information Reviewed: Yes Vital Signs On Initial Exam: Initial Vitals Temp Pulse Resp BP Pulse Ox 97.8 F 74 18 170/107 99 08/21/19 10:52 08/21/19 10:52 08/21/19 10:52 08/21/19 10:52 08/21/19 10:52 Vital Signs Reviewed: Yes Appearance: Positive: Well-Appearing, Well-Nourished Skin: Positive: Warm, Skin Color Reflects Adequate Perfusion Head/Face: Positive: Normal Head/Face Inspection Eyes: Positive: EOMI, ANSELMO, Conjunctiva Clear Neck: Positive: Supple, No Lymphadenopathy Respiratory/Lung Sounds: Positive: Clear to Auscultation, Breath Sounds Present Cardiovascular: Positive: RRR, Pulses are Symmetrical in both Upper and Lower Extremities Abdomen Description: Positive: Other: - slightly tender throughout, no pain at mcbruneys point, negative guerra's, no cva tenderness. Negative: CVA Tenderness (R), CVA Tenderness (L) Musculoskeletal: Positive: Normal, Strength/ROM Intact Neurological: Positive: Speech Normal Psychiatric: Positive: Anxious AVPU Assessment: Alert Procedures - Sedation Patient Received Moderate/Deep Sedation with Procedure: No Diagnostics - Vital Signs Vital Signs Temp Pulse Resp BP Pulse Ox 08/21/19 10:52 97.8 F 74 18 170/107 99 - Laboratory Result Diagrams: 08/21/19 11:37 08/21/19 11:37 Lab Statement: Any lab studies that have been ordered have been reviewed, and results considered in the medical decision making process. Abdominal Pain Male Course/Dx - Course Course Of Treatment: Patient is evaluated for diffuse abdominal pain which is nonradiating and anxiety symptoms. Labs obtained which are WNL except for a 3.3 potassium and a magnesium of 1.8, likely secondary to decreased by mouth intake for the past several days. Normal WBC and lipase. Patient denies any alcohol use over the past 5 days and denies any feelings of withdrawal. He endorses severe anxiety, but denies any seizure activity or agitation. He has followed up with Luis Montenegro a few times since his visit to the . He states he did not take more than 1-2 doses of the Librium given to him because it caused him to become too sedated. He states Ativan is much better, but understands this medication has other side effects. He states he will return to Dr. Montenegro next week and call Friday morning for an apt. He understands this to be anxiety related. I have discussed with the patient at length, these symptoms likely have a component of alcohol WD related to his anxiety as his symptoms have been worse since quitting 5 days ago. He was given Ativan IV and Lactated ringers with good relief. States this decreased his symptoms. He will be dcd with dx of anxiety and alcohol withdrawal. He will follow up in clinic Friday with Dr. Montenegro and I have agreed to give him 2 days of Ativan for severe anxiety symptoms. - Diagnoses Differential Diagnosis/HQI/PQRI: Other - abd pain, nausea, vomiting, depression Provider Diagnoses: Anxiety, Alcohol withdrawal Discharge ED - Sign-Out/Discharge Documenting (check all that apply): Patient Departure - Discharge Plan Condition: Stable Disposition: HOME Prescriptions: LORazepam TAB(*) [Ativan 1 MG TAB (*)] 1 mg PO Q8H PRN #6 tab MDD 3 PRN Reason: Anxiety Patient Education Materials: Anxiety (ED) Referrals: Paco Montenegro MD [Medical Doctor] - Rafa Nolasco MD [Primary Care Provider] - Additional Instructions: Please follow up with Dr. Montenegro's clinic - call on Friday morning You will need more management for your symtoms No other findings on bloodwork today If you develop any worsening symptoms, please return to the ED - Billing Disposition and Condition Condition: STABLE Disposition: Home
[2019-08-21 11:57] LABS: ABS Lymphocytes 1.2 10^3/ul (1.0-4.8); ABS Monocytes 0.3 10^3/ul (0-0.8); ABS Neutrophils 2.2 10^3/ul (1.5-7.7); Eosinophil % 0.6 %; Hematocrit 39 % (42-52); Hemoglobin 13.9 g/dL (14.0-18.0); Mean Corpuscular HGB Conc 35 g/dL (31-36); Mean Corpuscular Hemoglobin 33 pg (27-31); Mean Corpuscular Volume 92 fL (80-94); Mean Platelet Volume 8.5 fL (7.4-10.4); Nucleated Red Blood Cells % 0.1; Platelet Count 261 10^3/uL (150-450); Red Blood Count 4.26 10^6 /uL (4.18-5.48); Red Cell Distribution Width 13 % (10-15); White Blood Count 3.7 10^3/uL (3.5-10.8)
[2019-08-21] MEDS ORDERED: Lactated Ringers 1000 ML Bag* 1,000 ML IV SCH (12:00)
[2019-08-21 12:12] LABS: ALT 21 U/L (7-52); AST 21 U/L (13-39); Albumin 4.4 g/dL (3.2-5.2); Albumin/Globulin Ratio 1.9 (1-3); Alkaline Phosphatase 59 U/L (34-104); Amylase 44 U/L (29-103); Anion Gap 8 mmol/L (2-11); BUN/Creatinine Ratio 19.4 (8-20); Blood Urea Nitrogen 18 mg/dL (6-24); C Reactive Protein < 1.00 mg/L (<8.01); CO2 Carbon Dioxide 26 mmol/L (22-32); Calcium 9.2 mg/dL (8.6-10.3); Chloride 104 mmol/L (101-111); EGFR African American 113.2 (>60); EGFR Non-African American 93.6 (>60); Globulin 2.3 g/dL (2-4); Glucose 81 mg/dL (70-100); Magnesium 1.8 mg/dL (1.9-2.7); Potassium 3.3 mmol/L (3.5-5.0); Sodium 138 mmol/L (135-145); Total Protein 6.7 g/dL (6.4-8.9)
[2019-08-21 12:26] LABS: Alcohol < 10 mg/dL (<10)
[2019-08-21 12:42] LABS: INR 1.02 (0.82-1.09)
[2019-08-21 13:28] VITALS: BP 164/99
== END 2019-08-21 13:31 | disposition home or self-care (01) ==
LOC: ED 10:48
DX: F41.9 Anxiety disorder, unspecified (principal); F10.239 Alcohol dependence with withdrawal, unspecified; R11.2 Nausea with vomiting, unspecified; G47.00 Insomnia, unspecified; K21.9 Gastro-esophageal reflux disease without esophagitis; Z88.0 Allergy status to penicillin; Z87.891 Personal history of nicotine dependence
CPT/HCPCS: 36415; 80053; 80320; 82150; 83605; 83690; 83735; 85025; 85610; 86140; 96361; 96374; 99283; G0480; J2060

== ENCOUNTER 2021-01-01 19:52 | Inpatient (IN) ==
[2021-01-01 21:29] LABS: ABS Lymphocytes 1.3 10^3/ul (1.0-4.8); ABS Monocytes 0.3 10^3/ul (0-0.8); ABS Neutrophils 2.7 10^3/ul (1.5-7.7); Eosinophil % 0.3 %; Hematocrit 46 % (42-52); Hemoglobin 16.2 g/dL (14.0-18.0); Lymphocyte % 29.7 %; Mean Corpuscular HGB Conc 35 g/dL (31-36); Mean Corpuscular Hemoglobin 32 pg (27-31); Mean Corpuscular Volume 92 fL (80-94); Mean Platelet Volume 7.3 fL (7.4-10.4); Nucleated Red Blood Cells % 0.1; Platelet Count 284 10^3/uL (150-450); Red Cell Distribution Width 14 % (10-15); White Blood Count 4.4 10^3/uL (3.5-10.8)
[2021-01-01 21:50] LABS: ALT 59 U/L (7-52); AST 98 U/L (13-39); Albumin 4.9 g/dL (3.2-5.2); Albumin/Globulin Ratio 1.9 (1-3); Alkaline Phosphatase 82 U/L (34-104); Anion Gap 15 mmol/L (2-11); BUN/Creatinine Ratio 20.2 (8-20); Blood Urea Nitrogen 18 mg/dL (6-24); CO2 Carbon Dioxide 22 mmol/L (22-32); Calcium 8.8 mg/dL (8.6-10.3); Chloride 102 mmol/L (101-111); EGFR African American 117.7 (>60); EGFR Non-African American 97.3 (>60); Globulin 2.6 g/dL (2-4); Glucose 77 mg/dL (70-100); Potassium 3.5 mmol/L (3.5-5.0); Sodium 139 mmol/L (135-145); Total Protein 7.5 g/dL (6.4-8.9)
[2021-01-01 22:05] LABS: Alcohol, S 268 mg/dL (<10); Salicylate < 2.50 mg/dL (<30)
[2021-01-01 22:07] LABS: Acetaminophen < 15 mcg/mL
[2021-01-01 22:21] LABS: TSH Ultra Thyroid Stim Horm 1.59 mcIU/mL (0.34-5.60)
[2021-01-01 22:46] LABS: Urine Appearance Clear; Urine Bilirubin Negative (Negative); Urine Blood Negative (Negative); Urine Color Yellow; Urine Glucose Negative (Negative); Urine Ketones 1+ (Negative); Urine Nitrite Negative (Negative); Urine Protein Negative (Negative); Urine Specific Gravity 1.011 (1.010-1.030); Urine Urobilinogen Negative (Negative)
[2021-01-01 22:55] LABS: Urine Benzodiazepine Screen None Detected (None Detect); Urine Cannabinoids Screen None Detected (None Detect); Urine Opiates Screen None Detected (None Detect)
[2021-01-02] MEDS ORDERED: LORazepam 2 mg VIAL 1 ml ONE (05:46)
[2021-01-02] MEDS ORDERED: Lorazepam PYXIS KEY PRN ×2 (06:07→06:09)
[2021-01-02] MEDS ORDERED: LORazepam 2 mg VIAL 1 ml IM ONE ×2 (06:07→06:09)
[2021-01-02] MEDS ORDERED: Al Hydrox/Mg Hydrox/Simet LIQ 30 ML UDC PO PRN (08:46)
[2021-01-02] MEDS: Nicotine GUM 2MG FRUIT FLAVOR PO PRN ×4 (09:05→18:48)
[2021-01-02] MEDS: LORazepam PO 0-6 for WAM protocol PO SCH ×3 (10:05→18:44)
[2021-01-02] MEDS: Nicotine PATCH 7 MG/24 HR PATCH TRANSDERM SCH (10:30)
[2021-01-02] MEDS: Vitamin THERAPEUTIC TAB PO SCH (10:30)
[2021-01-02] MEDS ORDERED: Albuterol HFA INHALER 8 gm MDI INH PRN (11:47)
[2021-01-03] MEDS: LORazepam PO 0-6 for WAM protocol PO SCH ×5 (03:57→19:05)
[2021-01-03] MEDS: Nicotine GUM 2MG FRUIT FLAVOR PO PRN ×4 (03:58→17:32)
[2021-01-03] MEDS: Vitamin THERAPEUTIC TAB PO SCH (08:00)
[2021-01-03] MEDS: Nicotine PATCH 7 MG/24 HR PATCH TRANSDERM SCH (08:05)
[2021-01-03] MEDS ORDERED: Naltrexone INJ 380 MG IM ONE (12:00)
[2021-01-04] MEDS: Vitamin THERAPEUTIC TAB PO SCH (08:37)
[2021-01-04 08:51] VITALS: BP 146/95
[2021-01-04] MEDS: Nicotine GUM 2MG FRUIT FLAVOR PO PRN ×2 (08:56→12:15)
[2021-01-04] MEDS: Nicotine PATCH 7 MG/24 HR PATCH TRANSDERM SCH (11:14)
== END 2021-01-04 16:10 | disposition home or self-care (01) | DRG 880 ==
LOC: ED 19:52 → BSU 01-02 05:42
PROVIDERS: ADMIT Psychiatry & Neurology Psychiatry; ATTEND Psychiatry & Neurology Psychiatry

== ENCOUNTER 2021-09-30 18:26 | Inpatient (IN) ==
[2021-09-30] MEDS ORDERED: LORazepam 2 mg VIAL 1 ml ONE (18:30)
[2021-09-30] MEDS ORDERED: diPHENhydraMINE IV 50 MG/ML 1 ml VIAL (BENADRYL) IM ONE (18:31)
[2021-09-30] MEDS ORDERED: Haloperidol 5 mg/ml SDV IV/IM 5 MG/ML AMP IM ONE (18:31)
[2021-09-30] MEDS ORDERED: LORazepam 2 mg VIAL 1 ml IM ONE ×2 (19:20→20:12)
[2021-09-30] MEDS ORDERED: Lorazepam PYXIS KEY PRN ×2 (19:20→20:12)
[2021-09-30 19:28] LABS: Urine Appearance Clear; Urine Bilirubin Negative (Negative); Urine Blood Negative (Negative); Urine Color Colorless; Urine Glucose Negative (Negative); Urine Ketones Negative (Negative); Urine Nitrite Negative (Negative); Urine Protein Negative (Negative); Urine Specific Gravity 1.001 (1.002-1.030); Urine Urobilinogen Negative (Negative)
[2021-09-30 19:47] LABS: Urine Benzodiazepine Screen None Detected (None Detect); Urine Cannabinoids Screen Presumptive Positive (None Detect); Urine Opiates Screen None Detected (None Detect)
[2021-09-30 20:34] LABS: ABS Lymphocytes 2.2 10^3/ul (1.0-4.8); ABS Monocytes 0.5 10^3/ul (0-0.8); ABS Neutrophils 3.7 10^3/ul (1.5-7.7); Eosinophil % 0.3 %; Hematocrit 42 % (42-52); Hemoglobin 14.6 g/dL (14.0-18.0); Mean Corpuscular HGB Conc 35 g/dL (31-36); Mean Corpuscular Hemoglobin 31 pg (27-31); Mean Corpuscular Volume 90 fL (80-94); Mean Platelet Volume 8.5 fL (7.4-10.4); Nucleated Red Blood Cells % 0.1; Platelet Count 389 10^3/uL (150-450); Red Blood Count 4.64 10^6 /uL (4.18-5.48); Red Cell Distribution Width 13 % (10-15); White Blood Count 6.4 10^3/uL (3.5-10.8)
[2021-09-30 20:49] LABS: ALT 26 U/L (7-52); Albumin 4.6 g/dL (3.2-5.2); Albumin/Globulin Ratio 1.4 (1-3); Alkaline Phosphatase 142 U/L (35-149); Blood Urea Nitrogen 6 mg/dL (6-24); CO2 Carbon Dioxide 19 mmol/L (22-32); Calcium 9.5 mg/dL (8.6-10.3); Chloride 103 mmol/L (101-111); Globulin 3.3 g/dL (2-4); Glucose 87 mg/dL (70-100); Sodium 137 mmol/L (135-145); Total Protein 7.9 g/dL (6.4-8.9); eGFR CKD-EPI 121.4 (>60)
[2021-09-30 20:52] LABS: Anion Gap 15 mmol/L (2-11)
[2021-09-30 21:13] LABS: Acetaminophen < 15 mcg/mL; Alcohol, S 209 mg/dL (<13); Salicylate < 2.50 mg/dL (<30)
[2021-09-30 21:27] LABS: TSH Ultra Thyroid Stim Horm 2.48 mcIU/mL (0.34-5.60)
[2021-09-30 22:11] LABS: Potassium Redraw 3.6 mmol/L (3.5-5.0)
[2021-10-01] MEDS ORDERED: Al Hydrox/Mg Hydrox/Simet LIQ 30 ML UDC PO PRN (04:16)
[2021-10-01] MEDS ORDERED: Albuterol HFA INHALER 8 gm MDI INH PRN (04:18)
[2021-10-01] MEDS ORDERED: Nicotine GUM 2MG FRUIT FLAVOR PO PRN (05:00)
[2021-10-01] MEDS: Vitamin THERAPEUTIC TAB PO SCH (08:42)
[2021-10-01] MEDS: Nicotine PATCH 21 MG/24 HR PATCH TRANSDERM SCH (08:42)
[2021-10-01] MEDS: LORazepam PO 0-6 for WAM protocol PO SCH (11:48)
[2021-10-02 08:12] LABS: HDL Cholesterol 42.1 mg/dL
[2021-10-02] MEDS: Vitamin THERAPEUTIC TAB PO SCH (08:45)
[2021-10-02] MEDS: Nicotine PATCH 21 MG/24 HR PATCH TRANSDERM SCH (08:45)
[2021-10-03] MEDS: LORazepam PO 0-6 for WAM protocol PO SCH ×3 (01:08→06:06)
[2021-10-03] MEDS: Vitamin THERAPEUTIC TAB PO SCH (09:21)
[2021-10-03] MEDS: Nicotine PATCH 21 MG/24 HR PATCH TRANSDERM SCH (09:21)
[2021-10-04] MEDS: Nicotine PATCH 21 MG/24 HR PATCH TRANSDERM SCH (07:35)
[2021-10-04] MEDS: Vitamin THERAPEUTIC TAB PO SCH (07:36)
[2021-10-04 08:44] VITALS: BP 144/78
== END 2021-10-04 12:00 | DRG 775 ==
LOC: ED 18:26 → BSU 10-01 02:25
PROVIDERS: ADMIT Psychiatry & Neurology Psychiatry; ATTEND Psychiatry & Neurology Psychiatry

== ENCOUNTER 2022-04-06 08:07 | Inpatient (IN) ==
[2022-04-06] MEDS ORDERED: Ondansetron 4 mg VIAL 2 MG/ML 2 ml VIAL IV ONE (08:46)
[2022-04-06] MEDS ORDERED: LORazepam 2 mg VIAL 1 ml IV PUSH ONE (08:51)
[2022-04-06] MEDS ORDERED: Lorazepam PYXIS KEY PRN (08:51)
[2022-04-06 08:53] LABS: ABS Lymphocytes 1.4 10^3/ul (1.0-4.8); ABS Monocytes 0.4 10^3/ul (0-0.8); ABS Neutrophils 7.2 10^3/ul (1.5-7.7); Eosinophil % 0.1 %; Hematocrit 42 % (42-52); Hemoglobin 14.8 g/dL (14.0-18.0); Lymphocyte % 15.6 %; Mean Corpuscular HGB Conc 35 g/dL (31-36); Mean Corpuscular Hemoglobin 32 pg (27-31); Mean Corpuscular Volume 93 fL (80-94); Mean Platelet Volume 7.7 fL (7.4-10.4); Platelet Count 273 10^3/uL (150-450); Red Blood Count 4.58 10^6 /uL (4.18-5.48); Red Cell Distribution Width 15 % (10-15); White Blood Count 9.1 10^3/uL (3.5-10.8)
[2022-04-06 09:52] LABS: ALT 26 U/L (7-52); AST 69 U/L (13-39); Acetaminophen < 15 mcg/mL; Albumin 4.7 g/dL (3.2-5.2); Albumin/Globulin Ratio 1.9 (1-3); Alcohol, S 152 mg/dL (<13); Alkaline Phosphatase 101 U/L (35-149); Anion Gap 19 mmol/L (2-11); Blood Urea Nitrogen 10 mg/dL (6-24); CO2 Carbon Dioxide 19 mmol/L (22-32); Calcium 9.2 mg/dL (8.6-10.3); Chloride 101 mmol/L (101-111); Globulin 2.5 g/dL (2-4); Glucose 79 mg/dL (70-100); Magnesium 1.8 mg/dL (1.9-2.7); Potassium 3.1 mmol/L (3.5-5.0); Salicylate < 2.50 mg/dL (<30); Sodium 139 mmol/L (135-145); Total Protein 7.2 g/dL (6.4-8.9)
[2022-04-06] MEDS ORDERED: Potassium Chlor 20 meq TAB.ER PO ONE (10:01)
[2022-04-06 10:18] LABS: Urine Appearance Clear; Urine Bilirubin Negative (Negative); Urine Blood 1+ (Negative); Urine Color Yellow; Urine Glucose Negative (Negative); Urine Ketones 2+ (Negative); Urine Nitrite Negative (Negative); Urine Protein 2+(100 mg/dL) (Negative); Urine Specific Gravity 1.026 (1.002-1.030); Urine Urobilinogen Negative (Negative)
[2022-04-06] MEDS: LORazepam 2 mg VIAL 1 ml IV PUSH SCH ×6 (10:39→23:36)
[2022-04-06 10:40] LABS: Urine Bacteria Absent (Absent); Urine Red Blood Cell Trace(0-2/hpf) (Absent); Urine Squamous Epithelial Cell Present (Absent); Urine White Blood Cell Absent (Absent)
[2022-04-06] MEDS: Multivitamins/Minerals TAB PO SCH (10:40)
[2022-04-06 10:44] LABS: Urine Benzodiazepine Screen Presumptive Positive (None Detect); Urine Cannabinoids Screen Presumptive Positive (None Detect); Urine Opiates Screen None Detected (None Detect)
[2022-04-06] MEDS ORDERED: Ondansetron 4 mg VIAL 2 MG/ML 2 ml VIAL IV PRN (11:48)
[2022-04-06] MEDS ORDERED: Albuterol HFA INHALER 8 gm MDI INH PRN (12:03)
[2022-04-06] MEDS ORDERED: Thiamine 100 MG/ML 2 ml VIAL (200 mg) IM ONE (12:37)
[2022-04-06] MEDS ORDERED: Nicotine GUM 4MG FRUIT FLAVOR PO PRN (12:51)
[2022-04-06] MEDS ORDERED: Potassium Chloride LIQUID 20 MEQ/15 ML LIQUID PO ONE (13:22)
[2022-04-07] MEDS: LORazepam 2 mg VIAL 1 ml IV PUSH SCH ×3 (05:51→09:32)
[2022-04-07 06:19] LABS: ABS Eosinophils 0.1 10^3/ul (0-0.6); ABS Monocytes 0.5 10^3/ul (0-0.8); ABS Neutrophils 2.8 10^3/ul (1.5-7.7); Eosinophil % 2.3 %; Hematocrit 42 % (42-52); Hemoglobin 14.4 g/dL (14.0-18.0); Lymphocyte % 23.6 %; Mean Corpuscular HGB Conc 35 g/dL (31-36); Mean Corpuscular Hemoglobin 32 pg (27-31); Mean Corpuscular Volume 93 fL (80-94); Mean Platelet Volume 7.9 fL (7.4-10.4); Platelet Count 206 10^3/uL (150-450); Red Blood Count 4.46 10^6 /uL (4.18-5.48); Red Cell Distribution Width 15 % (10-15); White Blood Count 4.4 10^3/uL (3.5-10.8)
[2022-04-07 07:00] LABS: Albumin 4.2 g/dL (3.2-5.2); Albumin/Globulin Ratio 1.9 (1-3); Calcium 9.4 mg/dL (8.6-10.3); Globulin 2.2 g/dL (2-4); Potassium 3.4 mmol/L (3.5-5.0); Total Bilirubin 1.2 mg/dL (0.2-1.0); Total Protein 6.4 g/dL (6.4-8.9); eGFR CKD-EPI 113.9 (>60)
[2022-04-07] MEDS: Multivitamins/Minerals TAB PO SCH (08:24)
[2022-04-07] MEDS ORDERED: Pneumococcal Vac 23-Polyvalent IM ONE (09:00)
[2022-04-07] MEDS ORDERED: Venlafaxine XR 75 mg PO SCH (09:00)
[2022-04-07] MEDS ORDERED: Nicotine PATCH 21 MG/24 HR PATCH TRANSDERM SCH (09:00)
[2022-04-07] MEDS ORDERED: Lactated Ringers 500 ml BAG 500 ML IV ONE (11:11)
[2022-04-07] MEDS ORDERED: Naltrexone INJ 380 MG IM ONE (11:51)
[2022-04-07 11:59] LABS: Magnesium 1.8 mg/dL (1.9-2.7)
[2022-04-07] MEDS ORDERED: Potassium Chloride IV 40 MEQ in Lactated Ringers 1000 ml BAG 1,000 ML IVPB SCH (12:00)
[2022-04-07 17:00] VITALS: BP 176/105
== END 2022-04-07 17:30 | disposition left against medical advice (07) | DRG 770 ==
LOC: ED 08:07 → EDHOLD 11:48 → MED 17:32
PROVIDERS: ADMIT Internal Medicine; ATTEND Internal Medicine

== ENCOUNTER 2022-04-08 20:16 | Inpatient (IN) ==
[2022-04-08 20:57] LABS: ABS Eosinophils 0.5 10^3/ul (0-0.6); ABS Monocytes 0.4 10^3/ul (0-0.8); ABS Neutrophils 3.3 10^3/ul (1.5-7.7); Eosinophil % 7.5 %; Hematocrit 44 % (42-52); Hemoglobin 15.3 g/dL (14.0-18.0); Lymphocyte % 32.3 %; Mean Corpuscular HGB Conc 35 g/dL (31-36); Mean Corpuscular Hemoglobin 33 pg (27-31); Mean Corpuscular Volume 94 fL (80-94); Mean Platelet Volume 8.4 fL (7.4-10.4); Platelet Count 246 10^3/uL (150-450); Red Blood Count 4.69 10^6 /uL (4.18-5.48); Red Cell Distribution Width 15 % (10-15); White Blood Count 6.2 10^3/uL (3.5-10.8)
[2022-04-08 20:58] LABS: Urine Appearance Clear; Urine Bilirubin Negative (Negative); Urine Blood 1+ (Negative); Urine Color Yellow; Urine Glucose Negative (Negative); Urine Ketones Negative (Negative); Urine Nitrite Negative (Negative); Urine Protein Negative (Negative); Urine Specific Gravity 1.009 (1.002-1.030); Urine Urobilinogen Negative (Negative)
[2022-04-08 21:05] LABS: Urine Bacteria Absent (Absent); Urine Red Blood Cell Trace(0-2/hpf) (Absent); Urine White Blood Cell Trace(0-5/hpf) (Absent)
[2022-04-08 21:24] LABS: ALT 29 U/L (7-52); AST 54 U/L (13-39); Acetaminophen < 15 mcg/mL; Albumin 4.8 g/dL (3.2-5.2); Alcohol, S 230 mg/dL (<13); Alkaline Phosphatase 90 U/L (35-149); Anion Gap 13 mmol/L (2-11); Blood Urea Nitrogen 5 mg/dL (6-24); CO2 Carbon Dioxide 23 mmol/L (22-32); Calcium 9.2 mg/dL (8.6-10.3); Chloride 106 mmol/L (101-111); Globulin 2.4 g/dL (2-4); Glucose 132 mg/dL (70-100); Potassium 3.2 mmol/L (3.5-5.0); Salicylate < 2.50 mg/dL (<30); Sodium 142 mmol/L (135-145); Total Protein 7.2 g/dL (6.4-8.9); eGFR CKD-EPI 96.5 (>60)
[2022-04-08 21:29] LABS: Urine Benzodiazepine Screen Presumptive Positive (None Detect); Urine Cannabinoids Screen Presumptive Positive (None Detect); Urine Opiates Screen None Detected (None Detect)
[2022-04-08] MEDS ORDERED: Potassium Chlor 20 meq TAB.ER PO ONE (21:35)
[2022-04-08 21:39] LABS: TSH Ultra Thyroid Stim Horm 1.67 mcIU/mL (0.34-5.60)
[2022-04-08] MEDS ORDERED: LORazepam 2 mg VIAL 1 ml IM ONE ×2 (22:28→22:31)
[2022-04-08] MEDS ORDERED: Lorazepam PYXIS KEY PRN ×2 (22:28→22:31)
[2022-04-08] MEDS ORDERED: Haloperidol 5 mg/ml SDV IV/IM 5 MG/ML AMP IM ONE (22:29)
[2022-04-09] MEDS ORDERED: Al Hydrox/Mg Hydrox/Simet LIQ 30 ML UDC PO PRN (05:13)
[2022-04-09] MEDS ORDERED: Albuterol HFA INHALER 8 gm MDI INH PRN (05:14)
[2022-04-09] MEDS ORDERED: Nicotine GUM 2MG FRUIT FLAVOR PO PRN (06:00)
[2022-04-09] MEDS ORDERED: LORazepam PO 0-6 for WAM protocol PO SCH (06:00)
[2022-04-09 06:24] VITALS: BP 154/94
[2022-04-09] MEDS ORDERED: Venlafaxine XR 75 mg PO SCH (09:00)
[2022-04-09] MEDS ORDERED: Vitamin THERAPEUTIC TAB PO SCH (09:00)
== END 2022-04-09 16:20 | disposition home or self-care (01) | DRG 775 ==
LOC: ED 20:16 → BSU 04-09 04:30
PROVIDERS: ADMIT Psychiatry & Neurology Psychiatry; ATTEND Psychiatry & Neurology Psychiatry

== ENCOUNTER 2022-08-03 13:16 | Inpatient (IN) ==
[2022-08-03] MEDS ORDERED: LORazepam 2 mg VIAL 1 ml IV PUSH ONE ×6 (13:49→20:19)
[2022-08-03] MEDS ORDERED: Lorazepam PYXIS KEY PRN ×6 (13:49→20:19)
[2022-08-03 14:27] LABS: Urine Appearance Clear; Urine Bilirubin Negative (Negative); Urine Blood Negative (Negative); Urine Color Colorless; Urine Glucose Negative (Negative); Urine Ketones Negative (Negative); Urine Nitrite Negative (Negative); Urine Protein Negative (Negative); Urine Specific Gravity 1.001 (1.002-1.030); Urine Urobilinogen Negative (Negative)
[2022-08-03 14:38] LABS: ABS Lymphocytes 1.2 10^3/ul (1.0-4.8); ABS Monocytes 0.3 10^3/ul (0-0.8); ABS Neutrophils 1.7 10^3/ul (1.5-7.7); Eosinophil % 0.7 %; Hematocrit 49 % (42-52); Hemoglobin 16.6 g/dL (14.0-18.0); Lymphocyte % 36.5 %; Mean Corpuscular HGB Conc 34 g/dL (31-36); Mean Corpuscular Hemoglobin 32 pg (27-31); Mean Corpuscular Volume 94 fL (80-94); Mean Platelet Volume 7.2 fL (7.4-10.4); Platelet Count 260 10^3/uL (150-450); Red Blood Count 5.18 10^6 /uL (4.18-5.48); Red Cell Distribution Width 14 % (10-15); White Blood Count 3.3 10^3/uL (3.5-10.8)
[2022-08-03 14:40] LABS: Urine Benzodiazepine Screen None Detected (None Detect); Urine Cannabinoids Screen None Detected (None Detect); Urine Opiates Screen None Detected (None Detect)
[2022-08-03] MEDS ORDERED: Thiamine 100 MG/ML 2 ml VIAL 100 MG, Folic Acid IV 1 MG, Multiple Vitamin IV ADULT 10 M... IV ONE (14:45)
[2022-08-03 15:06] LABS: Acetaminophen < 15 mcg/mL; Salicylate < 2.50 mg/dL (<30)
[2022-08-03 15:09] LABS: Albumin 4.6 g/dL (3.2-5.2); Albumin/Globulin Ratio 1.7 (1-3); Calcium 8.6 mg/dL (8.6-10.3); Globulin 2.7 g/dL (2-4); Magnesium 2.4 mg/dL (1.9-2.7); Potassium 3.7 mmol/L (3.5-5.0); Total Bilirubin 0.6 mg/dL (0.2-1.0); Total Protein 7.3 g/dL (6.4-8.9); eGFR CKD-EPI 115.9 (>60)
[2022-08-03] MEDS ORDERED: Ondansetron 4 mg VIAL 2 MG/ML 2 ml VIAL IV PRN (16:32)
[2022-08-03] MEDS ORDERED: NS 0.9% 1000 ml BAG 1,000 ML IV SCH (16:45)
[2022-08-03] MEDS: Nicotine PATCH 21 MG/24 HR PATCH TRANSDERM SCH (18:06)
[2022-08-03] MEDS ORDERED: LORazepam 2 mg VIAL 1 ml ONE (19:15)
[2022-08-03] MEDS ORDERED: Albuterol 2.5mg/3 ml (0.083%) NEB.SOLN INH PRN (19:49)
[2022-08-03] MEDS ORDERED: Labetalol IV 5 MG/ML 20 ml VIAL IV PUSH PRN (19:53)
[2022-08-03] MEDS ORDERED: LORazepam 2 mg VIAL 1 ml IV PUSH SCH (20:00)
[2022-08-03] MEDS: Dexmedetomidine 1,000 MCG in NS 0.9% 250 ml 240 ML IV SCH ×3 (20:37→23:38)
[2022-08-04 04:39] LABS: Hematocrit 41 % (42-52); Hemoglobin 13.8 g/dL (14.0-18.0); Mean Corpuscular HGB Conc 33 g/dL (31-36); Mean Corpuscular Hemoglobin 32 pg (27-31); Mean Corpuscular Volume 96 fL (80-94); Red Blood Count 4.31 10^6 /uL (4.18-5.48); Red Cell Distribution Width 14 % (10-15); White Blood Count 1.9 10^3/uL (3.5-10.8)
[2022-08-04 04:51] LABS: ALT 81 U/L (7-52); Albumin 3.7 g/dL (3.2-5.2); Albumin/Globulin Ratio 1.8 (1-3); Alkaline Phosphatase 92 U/L (35-149); Blood Urea Nitrogen 10 mg/dL (6-24); CO2 Carbon Dioxide 18 mmol/L (22-32); Calcium 7.6 mg/dL (8.6-10.3); Chloride 110 mmol/L (101-111); Globulin 2.1 g/dL (2-4); Glucose 76 mg/dL (70-100); Magnesium 1.8 mg/dL (1.9-2.7); Sodium 142 mmol/L (135-145); Total Protein 5.8 g/dL (6.4-8.9); eGFR CKD-EPI 120.4 (>60)
[2022-08-04 04:55] LABS: Anion Gap 14 mmol/L (2-11)
[2022-08-04 05:20] LABS: ABS Eosinophils 0.1 10^3/ul (0-0.6); ABS Lymphocytes 1.3 10^3/ul (1.0-4.8); ABS Monocytes 0.2 10^3/ul (0-0.8); ABS Neutrophils 1.8 10^3/ul (1.5-7.7); Eosinophil % 2.9 %; Hematocrit 43 % (42-52); Hemoglobin 14.6 g/dL (14.0-18.0); Lymphocyte % 37.2 %; Mean Corpuscular HGB Conc 34 g/dL (31-36); Mean Corpuscular Hemoglobin 32 pg (27-31); Mean Corpuscular Volume 93 fL (80-94); Mean Platelet Volume 7.2 fL (7.4-10.4); Nucleated Red Blood Cells % 0.1; Platelet Count 217 10^3/uL (150-450); Red Blood Count 4.58 10^6 /uL (4.18-5.48); Red Cell Distribution Width 14 % (10-15); White Blood Count 3.5 10^3/uL (3.5-10.8)
[2022-08-04 05:31] LABS: Vitamin B12 377 pg/mL (180-914)
[2022-08-04 05:49] LABS: Direct Bilirubin Redraw 0.2 mg/dL (0.03-0.18); Potassium Redraw 3.8 mmol/L (3.5-5.0)
[2022-08-04 06:09] LABS: ABS Lymphocytes 1.3 10^3/ul (1.0-4.8); ABS Monocytes 0.1 10^3/ul (0-0.8); ABS Neutrophils 0.6 10^3/ul (1.5-7.7); Eosinophil % 1.8 %; Lymphocyte % 64.6 %; Mean Platelet Volume 10.6 fL (7.4-10.4); Nucleated Red Blood Cells % 0.6; Platelet Count 39 10^3/uL (150-450)
[2022-08-04] MEDS ORDERED: Metoprolol Tartrate 5 mg VIAL 5 ml VIAL (1 mg/ml) IV ONE ×2 (07:12→08:06)
[2022-08-04] MEDS ORDERED: KCL 10 MEQ/50 ML IVPREMIX 10 MEQ/50 ML BAG IV ONE (07:13)
[2022-08-04] MEDS ORDERED: Metoprolol Tartrate 5 mg VIAL 5 ml VIAL (1 mg/ml) ONE (07:13)
[2022-08-04] MEDS ORDERED: Magnesium Sulfate 2 gm BAG 2 GM/50 ML BAG IVPB ONE (07:13)
[2022-08-04] MEDS ORDERED: Magnesium Sulfate 2 gm BAG 2 GM/50 ML BAG ONE (07:25)
[2022-08-04] MEDS ORDERED: KCL 10 MEQ/50 ML IVPREMIX 10 MEQ/50 ML BAG ONE (07:25)
[2022-08-04] MEDS ORDERED: LORazepam 2 mg VIAL 1 ml IV PUSH SCH (08:00)
[2022-08-04] MEDS ORDERED: Multivitamins/Minerals TAB PO SCH (09:00)
[2022-08-04] MEDS ORDERED: CMCS: Vortioxetine 10 mg TAB (NF) PO SCH (09:00)
[2022-08-04] MEDS ORDERED: hydrALAZINE 20 mg/ml 1 ML Vial IV IV SLOW PU ONE (09:07)
[2022-08-04] MEDS: Nicotine PATCH 21 MG/24 HR PATCH TRANSDERM SCH (09:33)
[2022-08-04] MEDS: Dexmedetomidine 1,000 MCG in NS 0.9% 250 ml 240 ML IV SCH (11:24)
[2022-08-04 14:24] VITALS: BP 153/96
== END 2022-08-04 14:14 | disposition left against medical advice (07) | DRG 770 ==
LOC: ED 13:16 → EDHOLD 15:42 → ICU 21:21
PROVIDERS: ADMIT Hospitalist; ATTEND Hospitalist

== ENCOUNTER 2022-08-04 21:38 | Inpatient (IN) ==
[2022-08-04] MEDS ORDERED: Ondansetron ODT 4 mg TAB 4 MG TAB PO ONE (22:07)
[2022-08-04] MEDS ORDERED: Lorazepam PYXIS KEY PRN (23:03)
[2022-08-04] MEDS ORDERED: LORazepam 2 mg VIAL 1 ml IV PUSH ONE (23:03)
[2022-08-04 23:33] LABS: ABS Lymphocytes 0.4 10^3/ul (1.0-4.8); ABS Monocytes 0.3 10^3/ul (0-0.8); ABS Neutrophils 6.5 10^3/ul (1.5-7.7); Hematocrit 48 % (42-52); Hemoglobin 16.4 g/dL (14.0-18.0); Lymphocyte % 5.5 %; Mean Corpuscular HGB Conc 34 g/dL (31-36); Mean Corpuscular Hemoglobin 32 pg (27-31); Mean Corpuscular Volume 93 fL (80-94); Mean Platelet Volume 7.6 fL (7.4-10.4); Platelet Count 207 10^3/uL (150-450); Red Blood Count 5.16 10^6 /uL (4.18-5.48); Red Cell Distribution Width 14 % (10-15); White Blood Count 7.2 10^3/uL (3.5-10.8)
[2022-08-04] MEDS ORDERED: Droperidol 5 MG/2 ML 2 ML VIAL IV ONE (23:33)
[2022-08-05 00:19] LABS: Albumin 4.2 g/dL (3.2-5.2); Albumin/Globulin Ratio 1.8 (1-3); Calcium 8.5 mg/dL (8.6-10.3); Globulin 2.3 g/dL (2-4); Potassium 3.3 mmol/L (3.5-5.0); Total Bilirubin 0.8 mg/dL (0.2-1.0); Total Protein 6.5 g/dL (6.4-8.9); eGFR CKD-EPI 113.5 (>60)
[2022-08-05] MEDS ORDERED: fentaNYL 100 mcg/2 ml 50 MCG/ML VIAL IV ONE ×3 (01:02→03:56)
[2022-08-05] MEDS ORDERED: Prochlorperazine 5 mg/ml 2 ml VIAL (10 mg) IV ONE (01:26)
[2022-08-05] MEDS ORDERED: Iohexol 350 (CONTRAST) 500 ML MDV IV ONE (01:33)
[2022-08-05 02:18] LABS: Venous Bicarbonate HCO3 18.8 mmol/L (24-28)
[2022-08-05] MEDS ORDERED: Lorazepam PYXIS KEY PRN ×2 (03:55→18:54)
[2022-08-05] MEDS ORDERED: Acetaminophen IV 1 GM/100ML 1,000 MG/100 ML BAG IV PRN (04:33)
[2022-08-05] MEDS ORDERED: Prochlorperazine 5 mg/ml 2 ml VIAL (10 mg) IV PRN (04:33)
[2022-08-05] MEDS: Lactated Ringers 1000 ml BAG 1,000 ML IV SCH ×4 (04:34→15:21)
[2022-08-05] MEDS ORDERED: Albuterol 2.5mg/3 ml (0.083%) NEB.SOLN INH PRN (04:59)
[2022-08-05] MEDS ORDERED: LORazepam 2 mg VIAL 1 ml IV PUSH SCH (05:00)
[2022-08-05] MEDS ORDERED: Dexmedetomidine 1,000 MCG in NS 0.9% 250 ml 240 ML IV SCH ×3 (05:00→19:18)
[2022-08-05] MEDS: KCL 20 MEQ/100 ML IVPREMIX 20 MEQ/100 ML BAG IV SCH ×3 (05:06→15:22)
[2022-08-05] MEDS: LORazepam 2 mg VIAL 1 ml IV PUSH ONE ×2 (05:19→06:17)
[2022-08-05] MEDS: Pantoprazole VIAL 40 MG VIAL IV SCH ×2 (05:45→17:34)
[2022-08-05] MEDS: Multivitamins/Minerals TAB PO SCH (09:29)
[2022-08-05] MEDS ORDERED: Nicotine PATCH 21 MG/24 HR PATCH ONE (10:38)
[2022-08-05] MEDS: Ondansetron 4 mg VIAL 2 MG/ML 2 ml VIAL IV PRN ×2 (11:33→18:03)
[2022-08-05 11:45] LABS: ABS Lymphocytes 0.5 10^3/ul (1.0-4.8); ABS Monocytes 0.3 10^3/ul (0-0.8); ABS Neutrophils 5.6 10^3/ul (1.5-7.7); Eosinophil % 0.1 %; Hematocrit 46 % (42-52); Hemoglobin 15.7 g/dL (14.0-18.0); Lymphocyte % 7.3 %; Mean Corpuscular HGB Conc 34 g/dL (31-36); Mean Corpuscular Hemoglobin 32 pg (27-31); Mean Corpuscular Volume 93 fL (80-94); Mean Platelet Volume 8.2 fL (7.4-10.4); Platelet Count 193 10^3/uL (150-450); Red Blood Count 4.88 10^6 /uL (4.18-5.48); Red Cell Distribution Width 14 % (10-15); White Blood Count 6.3 10^3/uL (3.5-10.8)
[2022-08-05 12:15] LABS: Albumin/Globulin Ratio 1.7 (1-3); Calcium 8.8 mg/dL (8.6-10.3); Globulin 2.3 g/dL (2-4); Magnesium 1.8 mg/dL (1.9-2.7); Potassium 3.8 mmol/L (3.5-5.0); Total Bilirubin 1.4 mg/dL (0.2-1.0); Total Protein 6.3 g/dL (6.4-8.9); eGFR CKD-EPI 115.1 (>60)
[2022-08-05] MEDS: Thiamine IV 500 MG in NS 0.9% 250 ML (Wernicke-Korsakoff) IV SCH ×3 (12:59→22:29)
[2022-08-05] MEDS ORDERED: Magnesium Sulfate 2 gm BAG 2 GM/50 ML BAG IVPB ONE (15:33)
[2022-08-05] MEDS ORDERED: hydrALAZINE 20 mg/ml 1 ML Vial IV IV SLOW PU PRN (17:25)
[2022-08-05] MEDS: Nicotine PATCH 21 MG/24 HR PATCH TRANSDERM SCH (17:56)
[2022-08-05] MEDS ORDERED: LORazepam 2 mg VIAL 1 ml IV PUSH ONE (18:54)
[2022-08-05] MEDS ORDERED: Labetalol IV 5 MG/ML 20 ml VIAL IV PUSH ONE (18:54)
[2022-08-05] MEDS ORDERED: Senna TAB 8.6 mg TAB PO PRN (23:33)
[2022-08-06] MEDS: Thiamine IV 500 MG in NS 0.9% 250 ML (Wernicke-Korsakoff) IV SCH ×2 (00:02→07:47)
[2022-08-06] MEDS: Lactated Ringers 1000 ml BAG 1,000 ML IV SCH (05:03)
[2022-08-06] MEDS: Pantoprazole VIAL 40 MG VIAL IV SCH (05:04)
[2022-08-06 05:06] LABS: ABS Eosinophils 0.1 10^3/ul (0-0.6); ABS Lymphocytes 0.8 10^3/ul (1.0-4.8); ABS Monocytes 0.4 10^3/ul (0-0.8); Eosinophil % 1.8 %; Hematocrit 42 % (42-52); Hemoglobin 14.3 g/dL (14.0-18.0); Lymphocyte % 10.4 %; Mean Corpuscular HGB Conc 35 g/dL (31-36); Mean Corpuscular Hemoglobin 33 pg (27-31); Mean Corpuscular Volume 94 fL (80-94); Mean Platelet Volume 8.7 fL (7.4-10.4); Platelet Count 162 10^3/uL (150-450); Red Blood Count 4.42 10^6 /uL (4.18-5.48); Red Cell Distribution Width 14 % (10-15); White Blood Count 7.3 10^3/uL (3.5-10.8)
[2022-08-06 06:55] LABS: ALT 45 U/L (7-52); Albumin 3.4 g/dL (3.2-5.2); Albumin/Globulin Ratio 1.5 (1-3); Alkaline Phosphatase 83 U/L (35-149); Blood Urea Nitrogen 7 mg/dL (6-24); CO2 Carbon Dioxide 21 mmol/L (22-32); Chloride 103 mmol/L (101-111); Cholesterol 116 mg/dL; Globulin 2.2 g/dL (2-4); Glucose 89 mg/dL (70-100); HDL Cholesterol 41.4 mg/dL; LDL Cholesterol 51 mg/dL; Magnesium 2.1 mg/dL (1.9-2.7); Sodium 135 mmol/L (135-145); Total Protein 5.6 g/dL (6.4-8.9); Triglycerides 118 mg/dL; eGFR CKD-EPI 116.8 (>60)
[2022-08-06 06:57] LABS: Anion Gap 11 mmol/L (2-11)
[2022-08-06 07:32] LABS: Lipase 1412 U/L (11.0-82.0)
[2022-08-06] MEDS: Multivitamins/Minerals TAB PO SCH (07:47)
[2022-08-06] MEDS: Nicotine PATCH 21 MG/24 HR PATCH TRANSDERM SCH (07:48)
[2022-08-06] MEDS: Ondansetron 4 mg VIAL 2 MG/ML 2 ml VIAL IV PRN (08:03)
[2022-08-06] MEDS ORDERED: Lactated Ringers 1000 ml BAG 1,000 ML IV SCH (08:21)
[2022-08-06 08:49] LABS: Phosphorus 2.5 mg/dL (2.5-5.0)
[2022-08-06] MEDS ORDERED: CMCS:Vortioxetine 10 mg TAB (NF) PO SCH (09:00)
[2022-08-06] MEDS ORDERED: Morphine 2 MG/ML SYRINGE IV PRN (11:48)
[2022-08-06 13:20] VITALS: BP 154/84
[2022-08-11] MEDS ORDERED: Thiamine IV 250 MG in NS 0.9% 100 ML Q24H IV SCH (08:00)
== END 2022-08-06 13:10 | disposition left against medical advice (07) | DRG 282 ==
LOC: ED 21:38 → EDHOLD 08-05 04:30 → ICU 08-05 17:07
PROVIDERS: ADMIT Internal Medicine Critical Care Medicine; ATTEND Internal Medicine Critical Care Medicine

== ENCOUNTER 2022-10-14 08:44 | Inpatient (IN) ==
[2022-10-14] MEDS ORDERED: Thiamine 100 MG/ML 2 ml VIAL (200 mg) IM ONE (09:49)
[2022-10-14] MEDS ORDERED: Ondansetron 4 mg VIAL 2 MG/ML 2 ml VIAL IV ONE ×2 (09:49→09:56)
[2022-10-14] MEDS ORDERED: Lactated Ringers 1000 ml BAG 1,000 ML IV ONE (09:49)
[2022-10-14 09:59] LABS: ABS Lymphocytes 0.9 10^3/ul (1.0-4.8); ABS Monocytes 0.3 10^3/ul (0-0.8); ABS Neutrophils 3.5 10^3/ul (1.5-7.7); Hematocrit 47 % (42-52); Hemoglobin 16.8 g/dL (14.0-18.0); Lymphocyte % 19.3 %; Mean Corpuscular HGB Conc 36 g/dL (31-36); Mean Corpuscular Hemoglobin 33 pg (27-31); Mean Corpuscular Volume 92 fL (80-94); Nucleated Red Blood Cells % 0.1; Platelet Count 268 10^3/uL (150-450); Red Blood Count 5.11 10^6 /uL (4.18-5.48); Red Cell Distribution Width 13 % (10-15); White Blood Count 4.8 10^3/uL (3.5-10.8)
[2022-10-14 10:05] LABS: INR 1.02 (0.88-1.18)
[2022-10-14] MEDS ORDERED: LORazepam 2 mg VIAL 1 ml IV PUSH ONE ×2 (10:14→12:39)
[2022-10-14] MEDS ORDERED: Lorazepam PYXIS KEY PRN ×3 (10:14→14:11)
[2022-10-14 10:33] LABS: ALT 51 U/L (7-52); AST 54 U/L (13-39); Albumin 4.9 g/dL (3.2-5.2); Alcohol, S < 13 mg/dL (<13); Alkaline Phosphatase 97 U/L (35-149); Anion Gap 14 mmol/L (2-11); Blood Urea Nitrogen 19 mg/dL (6-24); CO2 Carbon Dioxide 26 mmol/L (22-32); Calcium 9.7 mg/dL (8.6-10.3); Chloride 95 mmol/L (101-111); Globulin 2.5 g/dL (2-4); Glucose 98 mg/dL (70-100); Lipase 25 U/L (11.0-82.0); Magnesium 1.8 mg/dL (1.9-2.7); Potassium 3.9 mmol/L (3.5-5.0); Sodium 135 mmol/L (135-145); Total Protein 7.4 g/dL (6.4-8.9); eGFR CKD-EPI 111.3 (>60)
[2022-10-14] MEDS ORDERED: Iohexol 350 (CONTRAST) 500 ML MDV IV ONE (11:03)
[2022-10-14] MEDS ORDERED: Albuterol HFA INHALER 8 gm MDI INH PRN (14:16)
[2022-10-14] MEDS ORDERED: cloNIDine 0.2 MG PATCH 0.2 MG/24 HR 7 DAY PATCH TRANSDERM SCH (15:00)
[2022-10-14] MEDS ORDERED: Pantoprazole VIAL 40 MG VIAL IV ONE (15:05)
[2022-10-14] MEDS: LORazepam 2 mg VIAL 1 ml IV PUSH PRN ×4 (15:47→22:50)
[2022-10-14] MEDS: Lactated Ringers 1000 ml BAG 1,000 ML IV SCH (15:49)
[2022-10-14] MEDS ORDERED: Nicotine GUM 2MG FRUIT FLAVOR PO PRN (16:13)
[2022-10-14] MEDS: Nicotine PATCH 14 MG/24 HR PATCH TRANSDERM SCH (16:56)
[2022-10-14] MEDS ORDERED: KCL 20 MEQ/100 ML IVPREMIX 20 MEQ/100 ML BAG IV ONE (18:15)
[2022-10-14] MEDS: Ondansetron ODT 4 mg TAB 4 MG TAB SL PRN (20:20)
[2022-10-14] MEDS ORDERED: HYDROmorphone 0.5 MG/0.5 ML SYRINGE IV SLOW PU ONE (20:59)
[2022-10-15] MEDS: Lactated Ringers 1000 ml BAG 1,000 ML IV SCH (00:53)
[2022-10-15] MEDS: LORazepam 2 mg VIAL 1 ml IV PUSH PRN ×4 (03:49→16:27)
[2022-10-15 07:05] LABS: INR 1.03 (0.88-1.18)
[2022-10-15 07:14] LABS: ABS Lymphocytes 1.4 10^3/ul (1.0-4.8); ABS Monocytes 0.3 10^3/ul (0-0.8); ABS Neutrophils 2.5 10^3/ul (1.5-7.7); Eosinophil % 1.1 %; Hematocrit 43 % (42-52); Lymphocyte % 32.3 %; Mean Corpuscular HGB Conc 35 g/dL (31-36); Mean Corpuscular Hemoglobin 33 pg (27-31); Mean Corpuscular Volume 95 fL (80-94); Mean Platelet Volume 8.7 fL (7.4-10.4); Nucleated Red Blood Cells % 0.1; Platelet Count 200 10^3/uL (150-450); Red Blood Count 4.56 10^6 /uL (4.18-5.48); Red Cell Distribution Width 14 % (10-15); White Blood Count 4.2 10^3/uL (3.5-10.8)
[2022-10-15] MEDS: Ondansetron ODT 4 mg TAB 4 MG TAB SL PRN ×2 (07:22→20:09)
[2022-10-15 07:25] LABS: Albumin 4.2 g/dL (3.2-5.2); Calcium 8.7 mg/dL (8.6-10.3); Globulin 2.1 g/dL (2-4); Potassium 3.5 mmol/L (3.5-5.0); Total Bilirubin 1.6 mg/dL (0.2-1.0); Total Protein 6.3 g/dL (6.4-8.9); eGFR CKD-EPI 109.9 (>60)
[2022-10-15] MEDS: Nicotine PATCH 14 MG/24 HR PATCH TRANSDERM SCH (09:07)
[2022-10-15] MEDS: Multivitamins/Minerals TAB PO SCH (09:07)
[2022-10-15] MEDS: DULoxetine DR 60 mg CAP PO SCH (09:07)
[2022-10-15] MEDS ORDERED: HYDROmorphone 0.5 MG/0.5 ML SYRINGE IV SLOW PU PRN (09:26)
[2022-10-15] MEDS: Sucralfate 1 gm SUSP 1 GM/10 ML UDC PO SCH ×2 (12:02→16:31)
[2022-10-15] MEDS ORDERED: NS 0.9% 1000 ml BAG 1,000 ML IV SCH (15:00)
[2022-10-15 16:28] LABS: Amylase 224 U/L (29-103)
[2022-10-15] MEDS: NS 0.9% 1000 ml BAG 1,000 ML IV SCH (17:14)
[2022-10-15] MEDS: HYDROmorphone 0.5 MG/0.5 ML SYRINGE IV SLOW PU PRN ×2 (17:15→21:26)
[2022-10-15 17:20] LABS: Lipase 1260 U/L (11.0-82.0)
[2022-10-16] MEDS: NS 0.9% 1000 ml BAG 1,000 ML IV SCH (02:05)
[2022-10-16] MEDS: HYDROmorphone 0.5 MG/0.5 ML SYRINGE IV SLOW PU PRN ×4 (02:06→15:22)
[2022-10-16 07:03] LABS: ABS Eosinophils 0.2 10^3/ul (0-0.6); ABS Monocytes 0.4 10^3/ul (0-0.8); ABS Neutrophils 4.3 10^3/ul (1.5-7.7); Eosinophil % 2.5 %; Hematocrit 40 % (42-52); Hemoglobin 14.1 g/dL (14.0-18.0); Mean Corpuscular HGB Conc 35 g/dL (31-36); Mean Corpuscular Hemoglobin 33 pg (27-31); Mean Corpuscular Volume 93 fL (80-94); Mean Platelet Volume 8.6 fL (7.4-10.4); Platelet Count 187 10^3/uL (150-450); Red Blood Count 4.33 10^6 /uL (4.18-5.48); Red Cell Distribution Width 14 % (10-15); White Blood Count 5.9 10^3/uL (3.5-10.8)
[2022-10-16 07:35] LABS: Albumin 4.2 g/dL (3.2-5.2); Albumin/Globulin Ratio 2.2 (1-3); Calcium 8.4 mg/dL (8.6-10.3); Globulin 1.9 g/dL (2-4); Potassium 3.5 mmol/L (3.5-5.0); Total Bilirubin 1.4 mg/dL (0.2-1.0); Total Protein 6.1 g/dL (6.4-8.9); eGFR CKD-EPI 118.7 (>60)
[2022-10-16] MEDS: Nicotine PATCH 14 MG/24 HR PATCH TRANSDERM SCH (08:58)
[2022-10-16] MEDS: Multivitamins/Minerals TAB PO SCH (08:59)
[2022-10-16] MEDS: Sucralfate 1 gm SUSP 1 GM/10 ML UDC PO SCH ×3 (08:59→17:44)
[2022-10-16] MEDS: DULoxetine DR 60 mg CAP PO SCH (08:59)
[2022-10-16] MEDS: Ondansetron ODT 4 mg TAB 4 MG TAB SL PRN (09:19)
[2022-10-16 18:06] VITALS: BP 151/93
== END 2022-10-16 18:40 | disposition left against medical advice (07) | DRG 282 ==
LOC: ED 08:44 → EDHOLD 08:44 → SUATTDRO 14:06 → EDHOLD 15:27 → MED 15:45
PROVIDERS: ADMIT Hospitalist; ATTEND Internal Medicine Hematology & Oncology

== ENCOUNTER 2022-12-12 17:19 | Inpatient (IN) ==
[2022-12-12] MEDS ORDERED: Ondansetron 4 mg VIAL 2 MG/ML 2 ml VIAL IV ONE (19:14)
[2022-12-12] MEDS ORDERED: Lorazepam PYXIS KEY PRN ×3 (19:14→22:26)
[2022-12-12] MEDS ORDERED: NS 0.9% 1000 ml BAG 1,000 ML IV ONE (19:14)
[2022-12-12] MEDS ORDERED: Folic Acid IV 1 MG in NS 0.9% 50 ML 50 ML IV ONE (19:14)
[2022-12-12] MEDS ORDERED: LORazepam 2 mg VIAL 1 ml IV PUSH ONE ×2 (19:14→21:50)
[2022-12-12 19:57] LABS: ABS Eosinophils 0.2 10^3/ul (0-0.6); ABS Lymphocytes 2.1 10^3/ul (1.0-4.8); ABS Monocytes 0.2 10^3/ul (0-0.8); ABS Neutrophils 1.9 10^3/ul (1.5-7.7); Eosinophil % 4.9 %; Hematocrit 46 % (42-52); Lymphocyte % 47.4 %; Mean Corpuscular HGB Conc 35 g/dL (31-36); Mean Corpuscular Hemoglobin 33 pg (27-31); Mean Corpuscular Volume 94 fL (80-94); Mean Platelet Volume 8.4 fL (7.4-10.4); Nucleated Red Blood Cells % 0.3; Platelet Count 231 10^3/uL (150-450); Red Blood Count 4.87 10^6 /uL (4.18-5.48); Red Cell Distribution Width 13 % (10-15); White Blood Count 4.4 10^3/uL (3.5-10.8)
[2022-12-12] MEDS: Thiamine 100 MG/ML 2 ml VIAL 250 MG in NS 0.9% 100 ml BAG 100 ML IV SCH (20:00)
[2022-12-12 20:47] LABS: ALT 42 U/L (7-52); Albumin 4.6 g/dL (3.2-5.2); Albumin/Globulin Ratio 1.9 (1-3); Alcohol, S 267 mg/dL (<13); Alkaline Phosphatase 94 U/L (35-149); Blood Urea Nitrogen 11 mg/dL (6-24); CO2 Carbon Dioxide 28 mmol/L (22-32); Calcium 9.1 mg/dL (8.6-10.3); Chloride 105 mmol/L (101-111); Creatinine, Serum 0.78 mg/dL (0.67-1.17); Globulin 2.4 g/dL (2-4); Glucose 91 mg/dL (70-100); Sodium 141 mmol/L (135-145); eGFR CKD-EPI 117.8 (>60)
[2022-12-12 20:51] LABS: Acetaminophen < 15 mcg/mL; Anion Gap 8 mmol/L (2-11)
[2022-12-12 20:56] LABS: Lipase 22 U/L (11.0-82.0)
[2022-12-12 21:44] LABS: Magnesium 1.8 mg/dL (1.9-2.7); Potassium Redraw 3.6 mmol/L (3.5-5.0)
[2022-12-12] MEDS ORDERED: LORazepam 2 mg VIAL 1 ml IV PUSH PRN (22:26)
[2022-12-12] MEDS ORDERED: cloNIDine 0.2 MG PATCH 0.2 MG/24 HR 7 DAY PATCH TRANSDERM SCH (23:45)
[2022-12-13] MEDS: LORazepam 2 mg VIAL 1 ml IV PUSH PRN ×6 (03:04→19:51)
[2022-12-13] MEDS: Ondansetron 4 mg VIAL 2 MG/ML 2 ml VIAL IV PRN ×3 (03:04→19:53)
[2022-12-13 06:44] LABS: Calcium 8.4 mg/dL (8.6-10.3); Potassium 3.7 mmol/L (3.5-5.0); Total Bilirubin 0.5 mg/dL (0.2-1.0)
[2022-12-13 06:48] LABS: ABS Basophils 0.1 10^3/ul (0-0.2); ABS Eosinophils 0.2 10^3/ul (0-0.6); ABS Lymphocytes 2.1 10^3/ul (1.0-4.8); ABS Monocytes 0.2 10^3/ul (0-0.8); ABS Neutrophils 1.4 10^3/ul (1.5-7.7); Eosinophil % 4.8 %; Hematocrit 43 % (42-52); Lymphocyte % 53.6 %; Mean Corpuscular HGB Conc 35 g/dL (31-36); Mean Corpuscular Hemoglobin 33 pg (27-31); Mean Corpuscular Volume 96 fL (80-94); Mean Platelet Volume 8.9 fL (7.4-10.4); Nucleated Red Blood Cells % 0.1; Platelet Count 196 10^3/uL (150-450); Red Blood Count 4.49 10^6 /uL (4.18-5.48); Red Cell Distribution Width 13 % (10-15); White Blood Count 3.9 10^3/uL (3.5-10.8)
[2022-12-13 06:49] LABS: Creatinine, Serum 1.07 mg/dL (0.67-1.17)
[2022-12-13 06:50] LABS: Albumin/Globulin Ratio 1.7 (1-3); Globulin 2.4 g/dL (2-4); Total Protein 6.4 g/dL (6.4-8.9); eGFR CKD-EPI 91.7 (>60)
[2022-12-13] MEDS ORDERED: LORazepam 2 mg VIAL 1 ml IV PUSH PRN ×2 (09:09→09:30)
[2022-12-13] MEDS ORDERED: Magnesium Sulfate 2 gm BAG 2 GM/50 ML BAG IVPB ONE (09:58)
[2022-12-13] MEDS: DULoxetine DR 30 mg CAP PO SCH (10:03)
[2022-12-13] MEDS: Nicotine PATCH 14 MG/24 HR PATCH TRANSDERM SCH (10:03)
[2022-12-13] MEDS ORDERED: Al Hydrox/Mg Hydrox/Simet LIQ 30 ML UDC PO ONE (14:52)
[2022-12-13] MEDS ORDERED: Famotidine IV 10 MG/ML 2 ml VIAL (20 mg) IV SLOW PU ONE (14:52)
[2022-12-13] MEDS ORDERED: Morphine 2 MG/ML SYRINGE IV ONE (14:53)
[2022-12-13] MEDS ORDERED: Morphine 2 MG/ML SYRINGE IV PRN (14:56)
[2022-12-13] MEDS: Nicotine Lozenge mini 4 MG LOZNG.MINI MT PRN (19:50)
[2022-12-13] MEDS: HYDROmorphone 1 MG/1 ML SYRINGE IV PRN (19:53)
[2022-12-13] MEDS: Thiamine 100 MG/ML 2 ml VIAL 250 MG in NS 0.9% 100 ml BAG 100 ML IV SCH (20:28)
[2022-12-14] MEDS: Nicotine Lozenge mini 4 MG LOZNG.MINI MT PRN (02:10)
[2022-12-14] MEDS: HYDROmorphone 1 MG/1 ML SYRINGE IV PRN ×2 (02:10→09:31)
[2022-12-14] MEDS: Ondansetron 4 mg VIAL 2 MG/ML 2 ml VIAL IV PRN ×4 (02:11→19:41)
[2022-12-14] MEDS ORDERED: Pantoprazole VIAL 40 MG VIAL IV ONE (09:24)
[2022-12-14] MEDS ORDERED: Al Hydrox/Mg Hydrox/Simet LIQ 30 ML UDC PO ONE (09:25)
[2022-12-14] MEDS: LORazepam 2 mg VIAL 1 ml IV PUSH PRN ×5 (09:32→23:33)
[2022-12-14] MEDS: DULoxetine DR 30 mg CAP PO SCH (09:34)
[2022-12-14] MEDS: Nicotine PATCH 14 MG/24 HR PATCH TRANSDERM SCH (09:43)
[2022-12-14] MEDS ORDERED: HYDROmorphone 0.5 MG/0.5 ML SYRINGE IV PRN ×2 (12:55→22:51)
[2022-12-14] MEDS: Acetaminophen IV 1 GM/100ML 1,000 MG/100 ML BAG IV PRN (15:44)
[2022-12-14] MEDS: Pantoprazole VIAL 40 MG VIAL IV SCH (21:35)
[2022-12-14] MEDS: Prochlorperazine 5 mg/ml 2 ml VIAL (10 mg) IV PRN (23:33)
[2022-12-15] MEDS: LORazepam 2 mg VIAL 1 ml IV PUSH PRN ×5 (04:22→22:27)
[2022-12-15 06:50] LABS: Hematocrit 42 % (42-52); Hemoglobin 14.6 g/dL (14.0-18.0); Mean Corpuscular HGB Conc 35 g/dL (31-36); Mean Corpuscular Hemoglobin 33 pg (27-31); Mean Corpuscular Volume 96 fL (80-94); Mean Platelet Volume 9.7 fL (7.4-10.4); Platelet Count 154 10^3/uL (150-450); Red Blood Count 4.37 10^6 /uL (4.18-5.48); Red Cell Distribution Width 13 % (10-15); White Blood Count 3.9 10^3/uL (3.5-10.8)
[2022-12-15 07:01] LABS: Calcium 8.9 mg/dL (8.6-10.3); Creatinine, Serum 0.95 mg/dL (0.67-1.17); eGFR CKD-EPI 105.7 (>60)
[2022-12-15] MEDS: Nicotine PATCH 14 MG/24 HR PATCH TRANSDERM SCH (09:11)
[2022-12-15] MEDS: Ondansetron 4 mg VIAL 2 MG/ML 2 ml VIAL IV PRN ×3 (09:12→18:26)
[2022-12-15] MEDS: Pantoprazole VIAL 40 MG VIAL IV SCH ×2 (09:12→20:36)
[2022-12-15] MEDS: HYDROmorphone 0.5 MG/0.5 ML SYRINGE IV PRN ×4 (09:12→22:41)
[2022-12-15] MEDS: DULoxetine DR 30 mg CAP PO SCH (09:13)
[2022-12-15] MEDS: Prochlorperazine 5 mg/ml 2 ml VIAL (10 mg) IV PRN (16:34)
[2022-12-15] MEDS: Al Hydrox/Mg Hydrox/Simet LIQ 30 ML UDC PO PRN (18:18)
[2022-12-16] MEDS: LORazepam 2 mg VIAL 1 ml IV PUSH PRN ×9 (00:29→22:52)
[2022-12-16] MEDS: HYDROmorphone 0.5 MG/0.5 ML SYRINGE IV PRN ×5 (03:06→21:56)
[2022-12-16] MEDS: Pantoprazole VIAL 40 MG VIAL IV SCH ×2 (07:55→20:38)
[2022-12-16] MEDS: Ondansetron 4 mg VIAL 2 MG/ML 2 ml VIAL IV PRN (07:56)
[2022-12-16] MEDS: Nicotine PATCH 14 MG/24 HR PATCH TRANSDERM SCH (08:05)
[2022-12-16] MEDS: DULoxetine DR 30 mg CAP PO SCH (08:05)
[2022-12-16] MEDS: Al Hydrox/Mg Hydrox/Simet LIQ 30 ML UDC PO PRN (08:05)
[2022-12-16] MEDS: Acetaminophen IV 1 GM/100ML 1,000 MG/100 ML BAG IV PRN ×2 (14:02→22:30)
[2022-12-16 15:33] LABS: Magnesium 2.3 mg/dL (1.9-2.7)
[2022-12-16 23:25] LABS: ABS Lymphocytes 0.4 10^3/ul (1.0-4.8); ABS Monocytes 0.4 10^3/ul (0-0.8); Hematocrit 43 % (42-52); Hemoglobin 14.7 g/dL (14.0-18.0); Lymphocyte % 3.6 %; Mean Corpuscular HGB Conc 35 g/dL (31-36); Mean Corpuscular Hemoglobin 32 pg (27-31); Mean Corpuscular Volume 94 fL (80-94); Mean Platelet Volume 9.8 fL (7.4-10.4); Platelet Count 148 10^3/uL (150-450); Red Blood Count 4.57 10^6 /uL (4.18-5.48); Red Cell Distribution Width 13 % (10-15); White Blood Count 11.9 10^3/uL (3.5-10.8)
[2022-12-16] MEDS ORDERED: Lactated Ringers 1000 ml BAG 1,000 ML IV SCH (23:45)
[2022-12-17 00:03] LABS: CRP High Sensitivity 73.06 mg/L (<2.00); Calcium 9.3 mg/dL (8.6-10.3); Creatinine, Serum 1.24 mg/dL (0.67-1.17); Potassium 3.9 mmol/L (3.5-5.0); eGFR CKD-EPI 76.8 (>60)
[2022-12-17] MEDS ORDERED: cefTRIAXone 1 gm/50 mL D5W 1 GM/50 ML BAG IV SCH (00:15)
[2022-12-17 00:28] LABS: Urine Appearance Clear; Urine Bilirubin Negative (Negative); Urine Blood Negative (Negative); Urine Color Yellow; Urine Glucose Negative (Negative); Urine Ketones Negative (Negative); Urine Nitrite Negative (Negative); Urine Protein Negative (Negative); Urine Specific Gravity 1.015 (1.002-1.030); Urine Urobilinogen Negative (Negative)
[2022-12-17] MEDS: LORazepam 2 mg VIAL 1 ml IV PUSH PRN ×6 (00:47→20:16)
[2022-12-17] MEDS: Nicotine Lozenge mini 4 MG LOZNG.MINI MT PRN (01:36)
[2022-12-17] MEDS: HYDROmorphone 0.5 MG/0.5 ML SYRINGE IV PRN ×5 (01:37→22:47)
[2022-12-17] MEDS ORDERED: Lactated Ringers 1000 ml BAG 1,000 ML IV ONE ×2 (02:54→05:52)
[2022-12-17] MEDS ORDERED: Lactated Ringers 1000 ml BAG 1,000 ML IV SCH (02:56)
[2022-12-17] MEDS: Lactated Ringers 1000 ml BAG 1,000 ML IV SCH ×3 (05:24→17:50)
[2022-12-17 05:29] LABS: ABS Lymphocytes 0.4 10^3/ul (1.0-4.8); ABS Monocytes 0.4 10^3/ul (0-0.8); ABS Neutrophils 7.2 10^3/ul (1.5-7.7); Hematocrit 41 % (42-52); Hemoglobin 14.3 g/dL (14.0-18.0); Lymphocyte % 5.5 %; Mean Corpuscular HGB Conc 35 g/dL (31-36); Mean Corpuscular Hemoglobin 33 pg (27-31); Mean Corpuscular Volume 94 fL (80-94); Mean Platelet Volume 9.8 fL (7.4-10.4); Platelet Count 132 10^3/uL (150-450); Red Blood Count 4.39 10^6 /uL (4.18-5.48); Red Cell Distribution Width 13 % (10-15)
[2022-12-17 06:09] LABS: Calcium 8.6 mg/dL (8.6-10.3); Creatinine, Serum 1.29 mg/dL (0.67-1.17); Magnesium 1.6 mg/dL (1.9-2.7); Potassium 3.9 mmol/L (3.5-5.0); eGFR CKD-EPI 73.2 (>60)
[2022-12-17] MEDS: Prochlorperazine 5 mg/ml 2 ml VIAL (10 mg) IV PRN (08:24)
[2022-12-17] MEDS: Pantoprazole VIAL 40 MG VIAL IV SCH ×2 (08:25→20:32)
[2022-12-17] MEDS: Acetaminophen IV 1 GM/100ML 1,000 MG/100 ML BAG IV PRN ×3 (08:29→22:47)
[2022-12-17] MEDS: DULoxetine DR 30 mg CAP PO SCH (08:33)
[2022-12-17] MEDS: Nicotine PATCH 14 MG/24 HR PATCH TRANSDERM SCH (08:34)
[2022-12-17] MEDS ORDERED: Magnesium Sulf 4 GM/100 ML IV 4,000 MG/100 ML BAG IVPB ONE (09:30)
[2022-12-17] MEDS ORDERED: Iohexol 300 (CONTRAST) 10 ML SDV IV ONE (11:17)
[2022-12-17] MEDS: ceFAZolin 2 GM in NS PREMIX 2 GM/100 ML BAG IVPB SCH ×2 (12:26→20:29)
[2022-12-17] MEDS ORDERED: Lidocaine 1% MPF 5 ML VIAL INJ ONE (16:48)
[2022-12-18] MEDS ORDERED: Prochlorperazine 5 mg/ml 2 ml VIAL (10 mg) IV PRN (00:53)
[2022-12-18] MEDS: Lactated Ringers 1000 ml BAG 1,000 ML IV SCH ×3 (02:10→20:51)
[2022-12-18] MEDS: LORazepam 2 mg VIAL 1 ml IV PUSH PRN ×5 (02:10→22:49)
[2022-12-18] MEDS: ceFAZolin 2 GM in NS PREMIX 2 GM/100 ML BAG IVPB SCH ×3 (04:07→20:51)
[2022-12-18] MEDS: HYDROmorphone 0.5 MG/0.5 ML SYRINGE IV PRN ×5 (04:16→20:59)
[2022-12-18 06:00] LABS: ABS Lymphocytes 0.5 10^3/ul (1.0-4.8); ABS Monocytes 0.3 10^3/ul (0-0.8); ABS Neutrophils 2.9 10^3/ul (1.5-7.7); Eosinophil % 0.1 %; Hematocrit 39 % (42-52); Hemoglobin 13.2 g/dL (14.0-18.0); Lymphocyte % 12.6 %; Mean Corpuscular HGB Conc 34 g/dL (31-36); Mean Corpuscular Hemoglobin 33 pg (27-31); Mean Corpuscular Volume 95 fL (80-94); Mean Platelet Volume 8.9 fL (7.4-10.4); Nucleated Red Blood Cells % 0.1; Platelet Count 104 10^3/uL (150-450); Red Blood Count 4.06 10^6 /uL (4.18-5.48); Red Cell Distribution Width 13 % (10-15); White Blood Count 3.6 10^3/uL (3.5-10.8)
[2022-12-18 06:47] LABS: Calcium 7.9 mg/dL (8.6-10.3); Creatinine, Serum 1.2 mg/dL (0.67-1.17); Potassium 3.7 mmol/L (3.5-5.0); eGFR CKD-EPI 79.9 (>60)
[2022-12-18 08:17] LABS: Magnesium 2.2 mg/dL (1.9-2.7)
[2022-12-18] MEDS: Nicotine PATCH 14 MG/24 HR PATCH TRANSDERM SCH (11:44)
[2022-12-18] MEDS: Pantoprazole VIAL 40 MG VIAL IV SCH ×2 (11:44→20:59)
[2022-12-18] MEDS ORDERED: Al Hydrox/Mg Hydrox/Simet LIQ 30 ML UDC PO ONE (11:49)
[2022-12-18] MEDS: Nicotine Lozenge mini 4 MG LOZNG.MINI MT PRN (12:05)
[2022-12-18] MEDS: DULoxetine DR 30 mg CAP PO SCH (12:05)
[2022-12-18] MEDS: Al Hydrox/Mg Hydrox/Simet LIQ 30 ML UDC PO SCH ×3 (12:12→23:25)
[2022-12-18] MEDS: Acetaminophen IV 1 GM/100ML 1,000 MG/100 ML BAG IV PRN ×2 (14:22→23:24)
[2022-12-19] MEDS: ceFAZolin 2 GM in NS PREMIX 2 GM/100 ML BAG IVPB SCH ×3 (03:50→21:18)
[2022-12-19] MEDS: Lactated Ringers 1000 ml BAG 1,000 ML IV SCH ×3 (05:35→21:13)
[2022-12-19] MEDS: Al Hydrox/Mg Hydrox/Simet LIQ 30 ML UDC PO SCH ×4 (06:00→23:55)
[2022-12-19 07:05] LABS: ABS Eosinophils 0.1 10^3/ul (0-0.6); ABS Lymphocytes 0.9 10^3/ul (1.0-4.8); ABS Monocytes 0.4 10^3/ul (0-0.8); ABS Neutrophils 1.5 10^3/ul (1.5-7.7); Eosinophil % 2.9 %; Hematocrit 37 % (42-52); Hemoglobin 12.6 g/dL (14.0-18.0); Lymphocyte % 31.4 %; Mean Corpuscular HGB Conc 35 g/dL (31-36); Mean Corpuscular Hemoglobin 33 pg (27-31); Mean Corpuscular Volume 96 fL (80-94); Mean Platelet Volume 9.4 fL (7.4-10.4); Platelet Count 94 10^3/uL (150-450); Red Blood Count 3.79 10^6 /uL (4.18-5.48); Red Cell Distribution Width 14 % (10-15); White Blood Count 2.9 10^3/uL (3.5-10.8)
[2022-12-19 07:17] LABS: Calcium 8.4 mg/dL (8.6-10.3); Creatinine, Serum 1.02 mg/dL (0.67-1.17); Magnesium 2.4 mg/dL (1.9-2.7); Potassium 3.8 mmol/L (3.5-5.0); eGFR CKD-EPI 97.1 (>60)
[2022-12-19] MEDS: Pantoprazole VIAL 40 MG VIAL IV SCH ×2 (08:34→21:14)
[2022-12-19] MEDS: Nicotine PATCH 14 MG/24 HR PATCH TRANSDERM SCH (08:36)
[2022-12-19] MEDS ORDERED: LORazepam 2 mg VIAL 1 ml IV PUSH ONE (09:42)
[2022-12-19] MEDS ORDERED: Lorazepam PYXIS KEY PRN (09:42)
[2022-12-19] MEDS ORDERED: Rocuronium 50 mg VIAL 10 mg/ml 5 ml VIAL (50 mg) ONE (10:27)
[2022-12-19] MEDS ORDERED: Succinylcholine 200 mg VIAL 20 mg/ml 10 ml VIAL (200 mg) ONE (10:28)
[2022-12-19] MEDS ORDERED: fentaNYL 100 mcg/2 ml 50 MCG/ML VIAL ONE (10:30)
[2022-12-19] MEDS ORDERED: Midazolam 10 mg/10 ml VIAL 1 mg/ml 10 ml VIAL (10 mg) ONE (10:31)
[2022-12-19] MEDS ORDERED: Ketamine HCL 50 mg/ml 10 ml VIAL (500 MG) ONE (10:31)
[2022-12-19] MEDS: DULoxetine DR 30 mg CAP PO SCH (12:14)
[2022-12-19] MEDS ORDERED: Labetalol IV 5 MG/ML 20 ml VIAL IV PUSH PRN (16:19)
[2022-12-19] MEDS ORDERED: HYDROcodone/ACETAMIN 5/325 mg TAB PO PRN (17:16)
[2022-12-19] MEDS: HYDROcodone/ACETAMIN 5/325 mg TAB PO PRN ×2 (17:58→23:54)
[2022-12-20] MEDS: ceFAZolin 2 GM in NS PREMIX 2 GM/100 ML BAG IVPB SCH ×2 (04:31→12:14)
[2022-12-20] MEDS: Lactated Ringers 1000 ml BAG 1,000 ML IV SCH (05:31)
[2022-12-20] MEDS: Al Hydrox/Mg Hydrox/Simet LIQ 30 ML UDC PO SCH ×2 (05:31→12:15)
[2022-12-20 05:50] LABS: ABS Eosinophils 0.1 10^3/ul (0-0.6); ABS Lymphocytes 1.4 10^3/ul (1.0-4.8); ABS Monocytes 0.5 10^3/ul (0-0.8); Eosinophil % 3.5 %; Hematocrit 34 % (42-52); Hemoglobin 11.5 g/dL (14.0-18.0); Lymphocyte % 44.9 %; Mean Corpuscular HGB Conc 34 g/dL (31-36); Mean Corpuscular Hemoglobin 33 pg (27-31); Mean Corpuscular Volume 96 fL (80-94); Platelet Count 115 10^3/uL (150-450); Red Blood Count 3.52 10^6 /uL (4.18-5.48); Red Cell Distribution Width 14 % (10-15)
[2022-12-20 06:15] LABS: Calcium 8.3 mg/dL (8.6-10.3); Creatinine, Serum 0.86 mg/dL (0.67-1.17); Magnesium 2.5 mg/dL (1.9-2.7); Potassium 3.9 mmol/L (3.5-5.0); eGFR CKD-EPI 114.4 (>60)
[2022-12-20] MEDS: HYDROcodone/ACETAMIN 5/325 mg TAB PO PRN ×2 (08:08→15:54)
[2022-12-20] MEDS: DULoxetine DR 30 mg CAP PO SCH (08:08)
[2022-12-20] MEDS: Nicotine PATCH 14 MG/24 HR PATCH TRANSDERM SCH (08:09)
[2022-12-20] MEDS: Pantoprazole VIAL 40 MG VIAL IV SCH (08:09)
[2022-12-20 11:15] LABS: C Reactive Protein 122.6 mg/L (<8.01)
[2022-12-20 15:56] VITALS: BP 177/107
[2022-12-20] MEDS ORDERED: ceFAZolin 2 GM in NS PREMIX 2 GM/100 ML BAG IVPB SCH (17:00)
== END 2022-12-20 18:14 | disposition home or self-care (01) | DRG 775 ==
LOC: ED 17:19 → SUATTDRO 22:31 → EDHOLD 22:31 → MED 12-13 14:35
PROVIDERS: ADMIT Hospitalist; ATTEND Internal Medicine
PROC: O.CATEE (2022-12-19 11:45)

== ENCOUNTER 2023-07-27 19:55 | Observation (INO) ==
[2023-07-27] MEDS ORDERED: Morphine 2 MG/ML SYRINGE IV ONE (20:29)
[2023-07-27] MEDS ORDERED: LORazepam 2 mg VIAL 1 ml IV PUSH PRN (20:29)
[2023-07-27] MEDS ORDERED: Lorazepam PYXIS KEY PRN (20:29)
[2023-07-27] MEDS ORDERED: NS 0.9% 1000 ml BAG 3,000 ML IV ONE (20:30)
[2023-07-27 21:04] LABS: ABS Eosinophils 0.1 10^3/uL (0.0-0.5); ABS Lymphocytes 1.4 10^3/uL (1.0-4.8); ABS Monocytes 0.2 10^3/uL (0.0-1.1); ABS Neutrophils 3.3 10^3/uL (1.5-7.6); ABS Nucleated RBC 0.01 10^3/ul; Eosinophil % 1.2 %; Hematocrit 44.1 % (38-53); Hemoglobin 15.5 g/dL (13.2-16.3); Lymphocyte % 27.6 %; Mean Corpuscular Hemoglobin 33.4 pg (27-33); Mean Corpuscular Hgb Conc 35.2 g/dL (31-36); Mean Platelet Volume 7.9 fL (7.5-11.2); Nucleated Red Blood Cells % 0.1 %/100WBC (0.0-0.8); Platelet Count 256 10^3/uL (150-450); Red Blood Count 4.64 10^6/uL (4.06-5.63); Red Cell Distribution Width 12.6 % (12-17); White Blood Count 4.9 10^3/uL (3.6-10.2)
[2023-07-27 21:51] LABS: Potassium 3.5 mmol/L (3.5-5.0)
[2023-07-27 21:52] LABS: Albumin 4.2 g/dL (3.2-5.2); Albumin/Globulin Ratio 1.6 (1-3); C Reactive Protein 11.77 mg/L (<8.01); Calcium 8.5 mg/dL (8.6-10.3); Creatinine, Serum 0.84 mg/dL (0.67-1.17); Globulin 2.6 g/dL (2-4); Total Bilirubin 0.3 mg/dL (0.2-1.0); Total Protein 6.8 g/dL (6.4-8.9); eGFR CKD-EPI 115.2 (>60)
[2023-07-27] MEDS ORDERED: Iohexol 350 (CONTRAST) 500 ML MDV IV ONE (22:09)
[2023-07-27 23:50] LABS: Urine Appearance Clear; Urine Bilirubin Negative (Negative); Urine Blood Negative (Negative); Urine Color Straw; Urine Glucose Negative (Negative); Urine Ketones Negative (Negative); Urine Nitrite Negative (Negative); Urine Protein Negative (Negative); Urine Specific Gravity 1.024 (1.002-1.030); Urine Urobilinogen Negative (Negative)
[2023-07-28] MEDS ORDERED: NS 0.9% 1000 ml BAG 1,000 ML IV SCH ×2 (02:00→03:04)
[2023-07-28] MEDS ORDERED: Thiamine 100 MG/ML 2 ml VIAL (200 mg) IM ONE (03:08)
[2023-07-28] MEDS ORDERED: LORazepam 2 mg VIAL 1 ml IM SCH (04:00)
[2023-07-28] MEDS: Morphine 2 MG/ML SYRINGE IV PRN ×3 (04:17→08:20)
[2023-07-28 05:35] LABS: ABS Eosinophils 0.1 10^3/uL (0.0-0.5); ABS Lymphocytes 1.7 10^3/uL (1.0-4.8); ABS Monocytes 0.4 10^3/uL (0.0-1.1); ABS Nucleated RBC 0.01 10^3/ul; Eosinophil % 0.8 %; Hematocrit 38.1 % (38-53); Hemoglobin 13.4 g/dL (13.2-16.3); Lymphocyte % 27.1 %; Mean Corpuscular Hemoglobin 33.2 pg (27-33); Mean Corpuscular Hgb Conc 35.3 g/dL (31-36); Mean Corpuscular Volume 94.1 fL (80-97); Mean Platelet Volume 7.9 fL (7.5-11.2); Nucleated Red Blood Cells % 0.1 %/100WBC (0.0-0.8); Platelet Count 200 10^3/uL (150-450); Red Blood Count 4.05 10^6/uL (4.06-5.63); Red Cell Distribution Width 12.7 % (12-17); White Blood Count 6.1 10^3/uL (3.6-10.2)
[2023-07-28 05:44] LABS: Albumin 3.8 g/dL (3.2-5.2); Calcium 7.9 mg/dL (8.6-10.3); Magnesium 1.5 mg/dL (1.9-2.7); Potassium 3.6 mmol/L (3.5-5.0); Total Bilirubin 0.5 mg/dL (0.2-1.0)
[2023-07-28 05:50] LABS: Albumin/Globulin Ratio 1.7 (1-3); Creatinine, Serum 0.74 mg/dL (0.67-1.17); Globulin 2.3 g/dL (2-4); Total Protein 6.1 g/dL (6.4-8.9); eGFR CKD-EPI 119.7 (>60)
[2023-07-28] MEDS ORDERED: Potassium Chlor 20 meq TAB.ER PO ONE (07:19)
[2023-07-28] MEDS ORDERED: Magnesium Sulf 4 GM/100 ML IV 4,000 MG/100 ML BAG IVPB ONE (07:20)
[2023-07-28] MEDS ORDERED: Lactated Ringers 1000 ml BAG 1,000 ML IV ONE ×3 (07:21→11:15)
[2023-07-28] MEDS ORDERED: Lactated Ringers 1000 ml BAG 1,000 ML IV SCH (08:00)
[2023-07-28] MEDS: Multivitamins/Minerals TAB PO SCH (08:21)
[2023-07-28] MEDS: Venlafaxine XR 75 mg PO SCH (08:21)
[2023-07-28] MEDS: Lactated Ringers 1000 ml BAG 1,000 ML IV SCH ×2 (13:13→19:59)
[2023-07-28 14:39] LABS: Creatinine, Serum 0.7 mg/dL (0.67-1.17); Potassium 3.6 mmol/L (3.5-5.0); eGFR CKD-EPI 121.7 (>60)
[2023-07-29] MEDS: Lactated Ringers 1000 ml BAG 1,000 ML IV SCH (01:53)
[2023-07-29 06:19] LABS: ABS Eosinophils 0.2 10^3/uL (0.0-0.5); ABS Lymphocytes 1.5 10^3/uL (1.0-4.8); ABS Monocytes 0.2 10^3/uL (0.0-1.1); ABS Neutrophils 2.2 10^3/uL (1.5-7.6); Eosinophil % 4.7 %; Hematocrit 37.6 % (38-53); Lymphocyte % 35.7 %; Mean Corpuscular Hemoglobin 32.9 pg (27-33); Mean Corpuscular Hgb Conc 34.4 g/dL (31-36); Mean Corpuscular Volume 95.5 fL (80-97); Mean Platelet Volume 8.1 fL (7.5-11.2); Nucleated Red Blood Cells % 0.1 %/100WBC (0.0-0.8); Platelet Count 189 10^3/uL (150-450); Red Blood Count 3.94 10^6/uL (4.06-5.63); Red Cell Distribution Width 12.9 % (12-17); White Blood Count 4.1 10^3/uL (3.6-10.2)
[2023-07-29 06:32] LABS: Albumin 3.6 g/dL (3.2-5.2); Albumin/Globulin Ratio 1.6 (1-3); Calcium 8.4 mg/dL (8.6-10.3); Creatinine, Serum 0.71 mg/dL (0.67-1.17); Globulin 2.2 g/dL (2-4); Magnesium 2.2 mg/dL (1.9-2.7); Potassium 4.1 mmol/L (3.5-5.0); Total Bilirubin 0.7 mg/dL (0.2-1.0); Total Protein 5.8 g/dL (6.4-8.9); eGFR CKD-EPI 121.2 (>60)
[2023-07-29] MEDS: Multivitamins/Minerals TAB PO SCH (08:08)
[2023-07-29] MEDS: Venlafaxine XR 75 mg PO SCH (08:09)
[2023-07-29 08:45] VITALS: BP 174/86
== END 2023-07-29 09:50 | disposition left against medical advice (07) ==
LOC: EDHOLD 19:55 → ED 19:55 → SUATTDRO 07-28 01:42 → MEDTELE 07-28 15:20
PROVIDERS: ADMIT Internal Medicine; ATTEND Family Medicine

== ENCOUNTER 2024-04-19 13:57 | Inpatient (IN) ==
[2024-04-19 14:55] LABS: ABS Lymphocytes 1.8 10^3/uL (1.0-4.8); ABS Monocytes 0.3 10^3/uL (0.0-1.1); ABS Neutrophils 2.6 10^3/uL (1.5-7.6); ABS Nucleated RBC 0.01 10^3/ul; Eosinophil % 0.4 %; Hematocrit 45.1 % (38-53); Hemoglobin 15.9 g/dL (13.2-16.3); Lymphocyte % 38.9 %; Mean Corpuscular Hemoglobin 33.5 pg (27-33); Mean Corpuscular Hgb Conc 35.2 g/dL (31-36); Mean Corpuscular Volume 94.9 fL (80-97); Mean Platelet Volume 7.9 fL (7.5-11.2); Nucleated Red Blood Cells % 0.1 %/100WBC (0.0-0.8); Platelet Count 275 10^3/uL (150-450); Red Blood Count 4.75 10^6/uL (4.06-5.63); Red Cell Distribution Width 13.6 % (12-17); White Blood Count 4.7 10^3/uL (3.6-10.2)
[2024-04-19] MEDS: Lactated Ringers 1000 ml BAG 1,000 ML IV SCH (15:05)
[2024-04-19] MEDS: Ondansetron 4 mg VIAL 2 MG/ML 2 ml VIAL IV ONE (15:06)
[2024-04-19 15:43] LABS: ALT 32 U/L (7-52); AST 32 U/L (13-39); Albumin 4.7 g/dL (3.2-5.2); Alkaline Phosphatase 84 U/L (35-149); Anion Gap 11 mmol/L (2-16); Blood Urea Nitrogen 10 mg/dL (6-24); CO2 Carbon Dioxide 27 mmol/L (22-32); Calcium 8.9 mg/dL (8.6-10.3); Chloride 104 mmol/L (101-111); Creatinine, Serum 0.89 mg/dL (0.67-1.17); Globulin 2.3 g/dL (2-4); Glucose 119 mg/dL (70-100); Magnesium 2.4 mg/dL (1.9-2.7); Potassium 3.5 mmol/L (3.5-5.0); Sodium 142 mmol/L (135-145); Total Bilirubin 0.5 mg/dL (0.2-1.0); eGFR CKD-EPI 112.5 (>60)
[2024-04-19 15:49] LABS: Alcohol, S 437 mg/dL (<13)
[2024-04-19] MEDS: Morphine 2 MG/ML SYRINGE IV ONE ×3 (16:25→17:46)
[2024-04-19 16:40] LABS: Lipase 183 U/L (11.0-82.0)
[2024-04-19 16:51] LABS: C Reactive Protein < 1.00 mg/L (<8.01)
[2024-04-19] MEDS: Iohexol 350 (CONTRAST) 500 ML MDV IV ONE (17:17)
[2024-04-19] MEDS: NS 0.9% 1000 ml BAG 1,000 ML IV SCH (18:53)
[2024-04-19 19:36] LABS: Urine Benzodiazepine Screen None Detected (None Detect); Urine Cannabinoids Screen None Detected (None Detect); Urine Opiates Screen Presumptive Positive (None Detect)
[2024-04-19] MEDS: Thiamine 100 MG/ML 2 ml VIAL (200 mg) IM ONE (21:16)
[2024-04-20] MEDS ORDERED: fentaNYL 100 mcg/2 ml 50 MCG/ML VIAL ONE (01:48)
[2024-04-20] MEDS: fentaNYL 100 mcg/2 ml 50 MCG/ML VIAL IV SLOW PU PRN (01:49)
[2024-04-20] MEDS: HYDROmorphone 1 MG/1 ML SYRINGE IV SLOW PU ONE (05:00)
[2024-04-20 07:29] LABS: ABS Lymphocytes 1.4 10^3/uL (1.0-4.8); ABS Monocytes 0.5 10^3/uL (0.0-1.1); ABS Neutrophils 7.6 10^3/uL (1.5-7.6); Eosinophil % 0.3 %; Hematocrit 47.5 % (38-53); Hemoglobin 16.6 g/dL (13.2-16.3); Lymphocyte % 14.3 %; Mean Corpuscular Hemoglobin 33.3 pg (27-33); Mean Corpuscular Hgb Conc 34.9 g/dL (31-36); Mean Corpuscular Volume 95.5 fL (80-97); Mean Platelet Volume 7.9 fL (7.5-11.2); Nucleated Red Blood Cells % 0.1 %/100WBC (0.0-0.8); Platelet Count 305 10^3/uL (150-450); Red Blood Count 4.98 10^6/uL (4.06-5.63); Red Cell Distribution Width 13.6 % (12-17); White Blood Count 9.6 10^3/uL (3.6-10.2)
[2024-04-20 08:37] LABS: Calcium 7.3 mg/dL (8.6-10.3); Creatinine, Serum 0.7 mg/dL (0.67-1.17); Magnesium 1.7 mg/dL (1.9-2.7); Phosphorus 2.6 mg/dL (2.5-5.0); Potassium 3.4 mmol/L (3.5-5.0)
[2024-04-20] MEDS: Ondansetron 4 mg VIAL 2 MG/ML 2 ml VIAL IV PRN (12:37)
[2024-04-20] MEDS: KCL 20 MEQ/100 ML IVPREMIX 20 MEQ/100 ML BAG IV ONE (12:37)
[2024-04-20] MEDS: Multivitamins/Minerals TAB PO SCH (12:53)
[2024-04-20] MEDS: diazePAM INJ CARPUJECT 5 MG/ML SYRINGE ONE (15:36)
[2024-04-20] MEDS: diazePAM INJ CARPUJECT 5 MG/ML SYRINGE IV ONE (15:39)
[2024-04-20] MEDS ORDERED: diazePAM INJ CARPUJECT 5 MG/ML SYRINGE IV PRN (15:54)
[2024-04-20] MEDS: Magnesium Sulfate 2 gm BAG 2 GM/50 ML BAG IVPB ONE (16:23)
[2024-04-20 16:59] LABS: ABS Lymphocytes 0.5 10^3/uL (1.0-4.8); ABS Monocytes 0.7 10^3/uL (0.0-1.1); ABS Neutrophils 7.5 10^3/uL (1.5-7.6); Hematocrit 45.4 % (38-53); Hemoglobin 15.5 g/dL (13.2-16.3); Lymphocyte % 5.9 %; Mean Corpuscular Hemoglobin 32.4 pg (27-33); Mean Corpuscular Hgb Conc 34.2 g/dL (31-36); Mean Corpuscular Volume 94.7 fL (80-97); Mean Platelet Volume 8.2 fL (7.5-11.2); Platelet Count 256 10^3/uL (150-450); Red Blood Count 4.79 10^6/uL (4.06-5.63); Red Cell Distribution Width 13.3 % (12-17); White Blood Count 8.7 10^3/uL (3.6-10.2)
[2024-04-20] MEDS ORDERED: diazePAM INJ CARPUJECT 5 MG/ML SYRINGE IV SCH (17:00)
[2024-04-20] MEDS: diazePAM INJ CARPUJECT 5 MG/ML SYRINGE IV PRN (17:35)
[2024-04-20 17:40] LABS: Albumin 4.7 g/dL (3.2-5.2); Albumin/Globulin Ratio 2.1 (1-3); Calcium 8.8 mg/dL (8.6-10.3); Creatinine, Serum 0.82 mg/dL (0.67-1.17); Globulin 2.2 g/dL (2-4); Potassium 3.9 mmol/L (3.5-5.0); Total Bilirubin 1.1 mg/dL (0.2-1.0); Total Protein 6.9 g/dL (6.4-8.9); eGFR CKD-EPI 115.3 (>60)
[2024-04-20] MEDS: Dexmedetomidine 1,000 MCG in NS 0.9% 250 ml 240 ML IV SCH ×2 (17:57→19:14)
[2024-04-20] MEDS: Potassium Chloride IV 20 MEQ in Lactated Ringers 1000 ml BAG 1,000 ML IVPB SCH (18:31)
[2024-04-20] MEDS: diazePAM INJ CARPUJECT 5 MG/ML SYRINGE IV SCH (22:13)
[2024-04-21 01:54] LABS: Magnesium 1.4 mg/dL (1.9-2.7)
[2024-04-21 04:26] LABS: ABS Lymphocytes 0.7 10^3/uL (1.0-4.8); ABS Monocytes 0.5 10^3/uL (0.0-1.1); ABS Nucleated RBC 0.01 10^3/ul; Eosinophil % 0.2 %; Hematocrit 35.5 % (38-53); Hemoglobin 12.4 g/dL (13.2-16.3); Lymphocyte % 11.9 %; Mean Corpuscular Hemoglobin 33.4 pg (27-33); Mean Corpuscular Hgb Conc 34.8 g/dL (31-36); Mean Corpuscular Volume 96.1 fL (80-97); Mean Platelet Volume 8.4 fL (7.5-11.2); Nucleated Red Blood Cells % 0.1 %/100WBC (0.0-0.8); Platelet Count 141 10^3/uL (150-450); Red Cell Distribution Width 13.1 % (12-17); White Blood Count 6.3 10^3/uL (3.6-10.2)
[2024-04-21 05:42] LABS: ALT 24 U/L (7-52); Albumin 3.9 g/dL (3.2-5.2); Albumin/Globulin Ratio 1.6 (1-3); Alkaline Phosphatase 95 U/L (35-149); Anion Gap 12 mmol/L (2-16); Blood Urea Nitrogen 9 mg/dL (6-24); CO2 Carbon Dioxide 20 mmol/L (22-32); Calcium 8.3 mg/dL (8.6-10.3); Chloride 102 mmol/L (101-111); Creatinine, Serum 0.86 mg/dL (0.67-1.17); Globulin 2.4 g/dL (2-4); Glucose 117 mg/dL (70-100); Sodium 134 mmol/L (135-145); Total Bilirubin 1.1 mg/dL (0.2-1.0); Total Protein 6.3 g/dL (6.4-8.9); eGFR CKD-EPI 113.7 (>60)
[2024-04-21] MEDS: diazePAM INJ CARPUJECT 5 MG/ML SYRINGE IV ONE (09:51)
[2024-04-21] MEDS: diazePAM INJ CARPUJECT 5 MG/ML SYRINGE ONE (09:56)
[2024-04-21] MEDS: PHENobarbital IV 260 MG in NS 0.9% 50 ML 50 ML IVPB ONE (10:41)
[2024-04-21 12:19] LABS: Magnesium 1.9 mg/dL (1.9-2.7)
[2024-04-21 12:25] LABS: Potassium, Whole Blood 4.7 mmol/L (3.4-4.5)
[2024-04-21] MEDS: PHENobarbital IV 130 MG in NS 0.9% 50 ML 50 ML IVPB PRN (12:50)
[2024-04-21 13:58] LABS: Venous Bicarbonate HCO3 23.5 mmol/L (24-28)
[2024-04-21] MEDS: Enoxaparin 40 MG/0.4 ML SYR SUBCUT SCH (17:29)
[2024-04-21] MEDS: Folic Acid IV 5 MG/ML 10 ML VIAL (50 mg) IV SCH (17:30)
[2024-04-21] MEDS: Thiamine IV 100 MG in NS 0.9% 50 ML Q24H IV SCH (17:30)
[2024-04-21] MEDS: Thiamine IV 100 MG/ML VIAL (only for Bannana Bags !) IVPB SCH (17:30)
[2024-04-21] MEDS: NORMOSOL-R pH 7.4 1000 mL BAG 1,000 ML IV SCH (17:37)
[2024-04-21] MEDS: Folic Acid IV 1 MG in NS 0.9% 50 ML 50 ML IV SCH (18:17)
[2024-04-22] MEDS: HYDROmorphone 1 MG/1 ML SYRINGE IV SLOW PU PRN (01:59)
[2024-04-22 05:26] LABS: Venous Bicarbonate HCO3 24.3 mmol/L (24-28)
[2024-04-22 05:30] LABS: ABS Eosinophils 0.2 10^3/uL (0.0-0.5); ABS Lymphocytes 1.2 10^3/uL (1.0-4.8); ABS Monocytes 0.4 10^3/uL (0.0-1.1); ABS Neutrophils 5.7 10^3/uL (1.5-7.6); ABS Nucleated RBC 0.01 10^3/ul; Eosinophil % 2.7 %; Hematocrit 39.8 % (38-53); Hemoglobin 13.7 g/dL (13.2-16.3); Lymphocyte % 16.2 %; Mean Corpuscular Hemoglobin 32.8 pg (27-33); Mean Corpuscular Hgb Conc 34.5 g/dL (31-36); Mean Platelet Volume 8.6 fL (7.5-11.2); Nucleated Red Blood Cells % 0.1 %/100WBC (0.0-0.8); Platelet Count 182 10^3/uL (150-450); Red Blood Count 4.19 10^6/uL (4.06-5.63); Red Cell Distribution Width 13.5 % (12-17); White Blood Count 7.6 10^3/uL (3.6-10.2)
[2024-04-22 06:34] LABS: ALT 17 U/L (7-52); Albumin 3.4 g/dL (3.2-5.2); Albumin/Globulin Ratio 1.4 (1-3); Alkaline Phosphatase 86 U/L (35-149); Anion Gap 8 mmol/L (2-16); Blood Urea Nitrogen 13 mg/dL (6-24); CO2 Carbon Dioxide 21 mmol/L (22-32); Calcium 7.9 mg/dL (8.6-10.3); Chloride 104 mmol/L (101-111); Creatinine, Serum 0.91 mg/dL (0.67-1.17); Globulin 2.5 g/dL (2-4); Glucose 100 mg/dL (70-100); Sodium 133 mmol/L (135-145); Total Protein 5.9 g/dL (6.4-8.9); eGFR CKD-EPI 110.6 (>60)
[2024-04-22] MEDS: PHENobarbital IV 65 MG/ML 1 ml VIAL ONE (09:48)
[2024-04-22] MEDS: D5LR 1000 ml BAG 1,000 ML IV SCH (11:43)
[2024-04-22] MEDS: Venlafaxine XR 75 mg PO SCH (14:28)
[2024-04-23 06:59] LABS: Albumin 3.5 g/dL (3.2-5.2); Albumin/Globulin Ratio 1.6 (1-3); Calcium 8.4 mg/dL (8.6-10.3); Creatinine, Serum 0.89 mg/dL (0.67-1.17); Globulin 2.2 g/dL (2-4); Magnesium 2.2 mg/dL (1.9-2.7); Potassium 3.7 mmol/L (3.5-5.0); Total Bilirubin 0.9 mg/dL (0.2-1.0); Total Protein 5.7 g/dL (6.4-8.9); eGFR CKD-EPI 112.5 (>60)
[2024-04-23 09:28] LABS: ABS Eosinophils 0.2 10^3/uL (0.0-0.5); ABS Lymphocytes 0.9 10^3/uL (1.0-4.8); ABS Monocytes 0.3 10^3/uL (0.0-1.1); ABS Neutrophils 4.4 10^3/uL (1.5-7.6); Hemoglobin 13.2 g/dL (13.2-16.3); Mean Corpuscular Hgb Conc 35.6 g/dL (31-36); Mean Corpuscular Volume 95.7 fL (80-97); Mean Platelet Volume 8.8 fL (7.5-11.2); Platelet Count 158 10^3/uL (150-450); Red Blood Count 3.87 10^6/uL (4.06-5.63); Red Cell Distribution Width 13.3 % (12-17); White Blood Count 5.8 10^3/uL (3.6-10.2)
[2024-04-23 09:29] LABS: Eosinophil % 3.1 %; Lymphocyte % 16.3 %; Nucleated Red Blood Cells % 0.1 %/100WBC (0.0-0.8)
[2024-04-23] MEDS ORDERED: Senna TAB 8.6 mg TAB PO PRN (11:18)
[2024-04-23] MEDS: HYDROmorphone 1 MG/1 ML SYRINGE IV SLOW PU PRN ×3 (11:25→17:26)
[2024-04-23] MEDS: PHENobarbital IV 65 MG/ML 1 ml VIAL IV PRN (11:50)
[2024-04-23] MEDS: diazePAM INJ CARPUJECT 5 MG/ML SYRINGE IV PRN (13:42)
[2024-04-23] MEDS ORDERED: Polyethylene Glycol 3350 17 GM PACKET PO PRN (15:11)
[2024-04-23 15:13] LABS: Hemoglobin 12.9 g/dL (13.2-16.3); Mean Corpuscular Hemoglobin 32.5 pg (27-33); Mean Corpuscular Volume 95.5 fL (80-97); Mean Platelet Volume 8.3 fL (7.5-11.2); Platelet Count 197 10^3/uL (150-450); Red Blood Count 3.98 10^6/uL (4.06-5.63); Red Cell Distribution Width 13.4 % (12-17)
[2024-04-23] MEDS ORDERED: Naloxone Nasal Spray 4 MG/0.1 ML NASAL.SPR INTRANASAL PRN (15:19)
[2024-04-23] MEDS: HYDROmorphone 1 MG/1 ML SYRINGE IV SLOW PU ONE (15:37)
[2024-04-23 15:50] LABS: Albumin 3.7 g/dL (3.2-5.2); Albumin/Globulin Ratio 1.5 (1-3); Calcium 8.5 mg/dL (8.6-10.3); Creatinine, Serum 0.74 mg/dL (0.67-1.17); Globulin 2.4 g/dL (2-4); Potassium 3.6 mmol/L (3.5-5.0); Total Bilirubin 0.8 mg/dL (0.2-1.0); Total Protein 6.1 g/dL (6.4-8.9); eGFR CKD-EPI 118.9 (>60)
[2024-04-23] MEDS ORDERED: Lorazepam PYXIS KEY PRN (18:02)
[2024-04-23] MEDS ORDERED: PHENobarbital IV 65 MG/ML 1 ml VIAL IV PRN (18:03)
[2024-04-23] MEDS: Potassium EFFERVES 25 meq TAB PO ONE (19:04)
[2024-04-23] MEDS: LORazepam 2 mg VIAL 1 ml IV PUSH SCH (19:06)
[2024-04-24 04:29] LABS: ABS Eosinophils 0.1 10^3/uL (0.0-0.5); ABS Lymphocytes 1.2 10^3/uL (1.0-4.8); ABS Monocytes 0.3 10^3/uL (0.0-1.1); ABS Neutrophils 2.3 10^3/uL (1.5-7.6); Eosinophil % 3.6 %; Hematocrit 35.8 % (38-53); Hemoglobin 12.6 g/dL (13.2-16.3); Lymphocyte % 30.5 %; Mean Corpuscular Hgb Conc 35.3 g/dL (31-36); Mean Corpuscular Volume 96.3 fL (80-97); Mean Platelet Volume 8.6 fL (7.5-11.2); Platelet Count 207 10^3/uL (150-450); Red Blood Count 3.72 10^6/uL (4.06-5.63); Red Cell Distribution Width 13.7 % (12-17)
[2024-04-24 05:25] LABS: Calcium 8.4 mg/dL (8.6-10.3); Creatinine, Serum 0.82 mg/dL (0.67-1.17); Potassium 3.1 mmol/L (3.5-5.0); eGFR CKD-EPI 115.3 (>60)
[2024-04-24] MEDS: KCL 20 MEQ/100 ML IVPREMIX 20 MEQ/100 ML BAG IV SCH (07:05)
[2024-04-24] MEDS: Senna TAB 8.6 mg TAB PO SCH (09:13)
[2024-04-24] MEDS: Polyethylene Glycol 3350 17 GM PACKET PO SCH (09:13)
[2024-04-25 06:17] LABS: ABS Eosinophils 0.2 10^3/uL (0.0-0.5); ABS Monocytes 0.4 10^3/uL (0.0-1.1); Eosinophil % 5.5 %; Hematocrit 36.9 % (38-53); Hemoglobin 12.8 g/dL (13.2-16.3); Lymphocyte % 27.3 %; Mean Corpuscular Hemoglobin 33.6 pg (27-33); Mean Corpuscular Hgb Conc 34.7 g/dL (31-36); Mean Corpuscular Volume 96.8 fL (80-97); Mean Platelet Volume 8.2 fL (7.5-11.2); Platelet Count 220 10^3/uL (150-450); Red Blood Count 3.81 10^6/uL (4.06-5.63); Red Cell Distribution Width 13.3 % (12-17); White Blood Count 3.6 10^3/uL (3.6-10.2)
[2024-04-25 07:10] LABS: Calcium 8.6 mg/dL (8.6-10.3); Creatinine, Serum 0.79 mg/dL (0.67-1.17); eGFR CKD-EPI 116.6 (>60)
[2024-04-25] MEDS: Morphine ER 30 mg TAB ** extended release PO SCH (10:09)
[2024-04-25] MEDS: Acetaminophen IV 1 GM/100ML 1,000 MG/100 ML BAG IV SCH (10:09)
[2024-04-25] MEDS: HYDROmorphone 1 MG/1 ML SYRINGE IV SLOW PU PRN (10:13)
[2024-04-25] MEDS: LORazepam 2 mg VIAL 1 ml IV PUSH SCH (16:14)
[2024-04-26 06:15] LABS: Calcium 8.9 mg/dL (8.6-10.3); Creatinine, Serum 0.92 mg/dL (0.67-1.17); Magnesium 2.2 mg/dL (1.9-2.7); Potassium 3.9 mmol/L (3.5-5.0); eGFR CKD-EPI 109.2 (>60)
[2024-04-26 06:27] LABS: ABS Eosinophils 0.2 10^3/uL (0.0-0.5); ABS Lymphocytes 1.1 10^3/uL (1.0-4.8); ABS Monocytes 0.4 10^3/uL (0.0-1.1); ABS Neutrophils 2.4 10^3/uL (1.5-7.6); Eosinophil % 5.9 %; Hematocrit 38.1 % (38-53); Hemoglobin 12.8 g/dL (13.2-16.3); Lymphocyte % 27.1 %; Mean Corpuscular Hemoglobin 32.5 pg (27-33); Mean Corpuscular Hgb Conc 33.6 g/dL (31-36); Mean Platelet Volume 8.4 fL (7.5-11.2); Platelet Count 250 10^3/uL (150-450); Red Blood Count 3.93 10^6/uL (4.06-5.63); Red Cell Distribution Width 13.6 % (12-17); White Blood Count 4.2 10^3/uL (3.6-10.2)
[2024-04-26] MEDS: Iohexol 300 (CONTRAST) 10 ML SDV IV ONE (09:24)
[2024-04-26] MEDS: HYDROmorphone 1 MG/1 ML SYRINGE IV SLOW PU PRN (22:58)
[2024-04-27 05:01] LABS: ABS Eosinophils 0.3 10^3/uL (0.0-0.5); ABS Lymphocytes 1.2 10^3/uL (1.0-4.8); ABS Monocytes 0.4 10^3/uL (0.0-1.1); ABS Neutrophils 2.2 10^3/uL (1.5-7.6); Eosinophil % 6.6 %; Hematocrit 39.2 % (38-53); Hemoglobin 13.6 g/dL (13.2-16.3); Mean Corpuscular Hemoglobin 33.7 pg (27-33); Mean Corpuscular Hgb Conc 34.6 g/dL (31-36); Mean Corpuscular Volume 97.3 fL (80-97); Mean Platelet Volume 8.2 fL (7.5-11.2); Platelet Count 265 10^3/uL (150-450); Red Blood Count 4.03 10^6/uL (4.06-5.63); Red Cell Distribution Width 13.6 % (12-17)
[2024-04-27 05:19] LABS: Anion Gap 9 mmol/L (2-16); Blood Urea Nitrogen 12 mg/dL (6-24); CO2 Carbon Dioxide 28 mmol/L (22-32); Chloride 97 mmol/L (101-111); Creatinine, Serum 0.87 mg/dL (0.67-1.17); Glucose 139 mg/dL (70-100); Magnesium 2.3 mg/dL (1.9-2.7); Sodium 134 mmol/L (135-145); eGFR CKD-EPI 113.3 (>60)
[2024-04-27] MEDS: Morphine ER 30 mg TAB ** extended release PO SCH (20:48)
[2024-04-28 11:18] VITALS: BP 160/98
[2024-04-28] MEDS: HYDROcodone/ACETAMIN 5/325 mg TAB PO ONE (11:20)
== END 2024-04-28 12:10 | disposition home or self-care (01) | DRG 775 ==
LOC: ED 13:57 → EDHOLD 18:38 → SUATTDRO 18:38 → MED 04-20 09:56 → ICU 04-20 14:21
PROVIDERS: ADMIT Internal Medicine; ATTEND Student in an Organized Health Care Education/Training Program

== ENCOUNTER 2024-05-18 14:27 | Inpatient (IN) ==
[2024-05-18] MEDS: Ondansetron 4 mg VIAL 2 MG/ML 2 ml VIAL IV ONE (16:32)
[2024-05-18] MEDS: diazePAM INJ CARPUJECT 5 MG/ML SYRINGE IV ONE (16:33)
[2024-05-18] MEDS: HYDROmorphone 1 MG/1 ML SYRINGE IV SLOW PU ONE ×2 (16:47→17:42)
[2024-05-18] MEDS: Lactated Ringers 1000 ml BAG 1,000 ML IV ONE (16:47)
[2024-05-18 18:50] LABS: ABS Eosinophils 0.2 10^3/uL (0.0-0.5); ABS Lymphocytes 1.9 10^3/uL (1.0-4.8); ABS Monocytes 0.2 10^3/uL (0.0-1.1); ABS Neutrophils 2.5 10^3/uL (1.5-7.6); ABS Nucleated RBC 0.01 10^3/ul; Eosinophil % 3.9 %; Hematocrit 42.1 % (38-53); Hemoglobin 14.2 g/dL (13.2-16.3); Lymphocyte % 39.4 %; Mean Corpuscular Hemoglobin 32.9 pg (27-33); Mean Corpuscular Hgb Conc 33.7 g/dL (31-36); Mean Corpuscular Volume 97.7 fL (80-97); Mean Platelet Volume 8.2 fL (7.5-11.2); Nucleated Red Blood Cells % 0.2 %/100WBC (0.0-0.8); Platelet Count 251 10^3/uL (150-450); Red Blood Count 4.31 10^6/uL (4.06-5.63); White Blood Count 4.9 10^3/uL (3.6-10.2)
[2024-05-18 19:03] LABS: High Sens Troponin Baseline 4 pg/mL (<20)
[2024-05-18 19:24] LABS: ALT 71 U/L (7-52); AST 104 U/L (13-39); Albumin 4.6 g/dL (3.2-5.2); Albumin/Globulin Ratio 1.9 (1-3); Alkaline Phosphatase 136 U/L (35-149); Amylase 30 U/L (29-103); Anion Gap 15 mmol/L (2-16); Blood Urea Nitrogen 5 mg/dL (6-24); C Reactive Protein 2.08 mg/L (<8.01); CO2 Carbon Dioxide 24 mmol/L (22-32); Calcium 8.8 mg/dL (8.6-10.3); Chloride 101 mmol/L (101-111); Creatinine, Serum 0.75 mg/dL (0.67-1.17); Globulin 2.4 g/dL (2-4); Glucose 107 mg/dL (70-100); Lipase < 10 U/L (11.0-82.0); Potassium 3.3 mmol/L (3.5-5.0); Sodium 140 mmol/L (135-145); Total Bilirubin 0.6 mg/dL (0.2-1.0); eGFR CKD-EPI 118.5 (>60)
[2024-05-18] MEDS: HYDROmorphone 1 MG/1 ML SYRINGE IV PRN (20:02)
[2024-05-18 20:08] LABS: Urine Appearance Clear; Urine Bilirubin Negative (Negative); Urine Blood Negative (Negative); Urine Color Colorless; Urine Glucose Negative (Negative); Urine Ketones Negative (Negative); Urine Nitrite Negative (Negative); Urine Protein Negative (Negative); Urine Specific Gravity 1.004 (1.002-1.030); Urine Urobilinogen Negative (Negative); Urine pH 5.5 (5.0-8.0)
[2024-05-18 20:34] LABS: High Sensitivity Troponin 1 Hr 5 pg/mL (<20)
[2024-05-18] MEDS ORDERED: Lorazepam PYXIS KEY PRN (22:51)
[2024-05-19] MEDS: LORazepam 2 mg VIAL 1 ml IV PUSH ONE (01:39)
[2024-05-19] MEDS: LORazepam 2 mg VIAL 1 ml IV PUSH SCH (01:45)
[2024-05-19] MEDS: Thiamine 100 MG/ML 2 ml VIAL (200 mg) IM ONE (02:15)
[2024-05-19] MEDS: Omeprazole 10 mg CAP (NF) PO ONE (05:32)
[2024-05-19] MEDS: Famotidine IV 10 MG/ML 2 ml VIAL (20 mg) IV SLOW PU ONE (05:39)
[2024-05-19 08:59] LABS: Magnesium 2.1 mg/dL (1.9-2.7)
[2024-05-19] MEDS: Multivitamins/Minerals TAB PO SCH (09:38)
[2024-05-19] MEDS: PHENobarbital IV 500 MG in NS 0.9% 100 ml BAG 100 ML IV ONE (09:49)
[2024-05-19] MEDS: KCL 10 MEQ/50 ML IVPREMIX 10 MEQ/50 ML BAG IV SCH (10:35)
[2024-05-19] MEDS ORDERED: LORazepam 2 mg VIAL 1 ml IV PUSH SCH (11:13)
[2024-05-19] MEDS ORDERED: HYDROmorphone 0.5 MG/0.5 ML SYRINGE IV SLOW PU PRN (11:48)
[2024-05-19] MEDS: HYDROmorphone 1 MG/1 ML SYRINGE IV PRN (12:00)
[2024-05-19] MEDS: Acetaminophen IV 1 GM/100ML 1,000 MG/100 ML BAG IV SCH (13:59)
[2024-05-19] MEDS ORDERED: Naloxone 0.4 mg VIAL 0.4 mg/ml 1 ml VIAL IV PUSH PRN (14:59)
[2024-05-19 16:51] LABS: ABS Basophils 0.1 10^3/uL (0.0-0.1); ABS Eosinophils 0.3 10^3/uL (0.0-0.5); ABS Lymphocytes 1.6 10^3/uL (1.0-4.8); ABS Monocytes 0.3 10^3/uL (0.0-1.1); ABS Neutrophils 2.4 10^3/uL (1.5-7.6); ABS Nucleated RBC 0.01 10^3/ul; Eosinophil % 5.6 %; Hematocrit 37.6 % (38-53); Hemoglobin 13.1 g/dL (13.2-16.3); Lymphocyte % 35.2 %; Mean Corpuscular Hemoglobin 33.7 pg (27-33); Mean Corpuscular Hgb Conc 34.8 g/dL (31-36); Mean Corpuscular Volume 96.9 fL (80-97); Mean Platelet Volume 8.8 fL (7.5-11.2); Nucleated Red Blood Cells % 0.2 %/100WBC (0.0-0.8); Platelet Count 178 10^3/uL (150-450); Red Blood Count 3.88 10^6/uL (4.06-5.63); Red Cell Distribution Width 13.6 % (12-17); White Blood Count 4.7 10^3/uL (3.6-10.2)
[2024-05-19 17:16] LABS: Albumin 3.8 g/dL (3.2-5.2); Albumin/Globulin Ratio 2.2 (1-3); Calcium 8.9 mg/dL (8.6-10.3); Globulin 1.7 g/dL (2-4); Magnesium 1.8 mg/dL (1.9-2.7); Total Bilirubin 0.8 mg/dL (0.2-1.0); Total Protein 5.5 g/dL (6.4-8.9); eGFR CKD-EPI 98.8 (>60)
[2024-05-19] MEDS: Enoxaparin 40 MG/0.4 ML SYR SUBCUT SCH (20:24)
[2024-05-20 05:02] LABS: ABS Eosinophils 0.3 10^3/uL (0.0-0.5); ABS Lymphocytes 1.5 10^3/uL (1.0-4.8); ABS Monocytes 0.2 10^3/uL (0.0-1.1); ABS Neutrophils 1.1 10^3/uL (1.5-7.6); Eosinophil % 8.2 %; Hematocrit 35.9 % (38-53); Hemoglobin 12.3 g/dL (13.2-16.3); Lymphocyte % 47.3 %; Mean Corpuscular Hemoglobin 33.2 pg (27-33); Mean Corpuscular Hgb Conc 34.2 g/dL (31-36); Mean Platelet Volume 8.6 fL (7.5-11.2); Nucleated Red Blood Cells % 0.1 %/100WBC (0.0-0.8); Platelet Count 183 10^3/uL (150-450); Red Cell Distribution Width 13.6 % (12-17); White Blood Count 3.1 10^3/uL (3.6-10.2)
[2024-05-20 05:47] LABS: Potassium 3.9 mmol/L (3.5-5.0)
[2024-05-20 05:48] LABS: Calcium 8.8 mg/dL (8.6-10.3); Creatinine, Serum 0.88 mg/dL (0.67-1.17); eGFR CKD-EPI 112.9 (>60)
[2024-05-20 05:49] LABS: Albumin 3.7 g/dL (3.2-5.2); Albumin/Globulin Ratio 2.1 (1-3); Globulin 1.8 g/dL (2-4); Magnesium 1.7 mg/dL (1.9-2.7); Total Bilirubin 0.6 mg/dL (0.2-1.0); Total Protein 5.5 g/dL (6.4-8.9)
[2024-05-20] MEDS: Venlafaxine XR 75 mg PO SCH (08:36)
[2024-05-20] MEDS ORDERED: Polyethylene Glycol 3350 17 GM PACKET PO PRN (09:23)
[2024-05-20] MEDS ORDERED: Magnesium Hydroxide LIQ 30 ML UDC PO PRN (09:23)
[2024-05-20] MEDS ORDERED: Senna TAB 8.6 mg TAB PO PRN (09:23)
[2024-05-20] MEDS: HYDROmorphone 1 MG/1 ML SYRINGE IV PRN (12:36)
[2024-05-20] MEDS: Sulfur Hexaflouride MICROSPHR 25 MG VIAL IV ONE (13:35)
[2024-05-20] MEDS ORDERED: Sulfur Hexaflouride MICROSPHR 25 MG VIAL ONE (13:39)
[2024-05-20] MEDS: HYDROmorphone 0.5 MG/0.5 ML SYRINGE IV SLOW PU PRN (20:40)
[2024-05-20] MEDS: Magnesium Hydroxide LIQ 30 ML UDC PO SCH (23:32)
[2024-05-21] MEDS: Magnesium Sulfate 2 gm BAG 2 GM/50 ML BAG IVPB ONE ×2 (08:30→08:40)
[2024-05-21] MEDS ORDERED: Acetaminophen IV 1 GM/100ML 1,000 MG/100 ML BAG IV PRN (13:13)
[2024-05-21] MEDS ORDERED: HYDROcodone/ACETAMIN 5/325 mg TAB PO PRN (13:24)
[2024-05-21] MEDS: Acetaminophen IV 1 GM/100ML 1,000 MG/100 ML BAG IV SCH (14:10)
[2024-05-21] MEDS: oxyCODONE SR 10 mg TAB PO SCH (14:43)
[2024-05-21] MEDS: HYDROmorphone 0.5 MG/0.5 ML SYRINGE IV SLOW PU PRN (16:04)
[2024-05-21 16:25] VITALS: BP 180/128
[2024-05-21] MEDS ORDERED: oxyCODONE SR 10 mg TAB PO SCH (21:00)
== END 2024-05-21 16:30 | disposition left against medical advice (07) | DRG 770 ==
LOC: ED 14:27 → SUATTDRO 05-19 10:34 → EDHOLD 05-19 10:34 → ICU 05-19 11:22 → MEDTELE 05-19 13:00
PROVIDERS: ADMIT Student in an Organized Health Care Education/Training Program; ATTEND Hospitalist

== ENCOUNTER 2024-06-23 13:42 | Observation (INO) ==
[2024-06-23] MEDS: Lactated Ringers 1000 ml BAG 1,000 ML IV ONE ×2 (14:40→17:50)
[2024-06-23] MEDS: Ondansetron 4 mg VIAL 2 MG/ML 2 ml VIAL IV ONE (14:40)
[2024-06-23 14:50] LABS: ABS Lymphocytes 1.4 10^3/uL (1.0-4.8); ABS Monocytes 0.2 10^3/uL (0.0-1.1); ABS Neutrophils 2.3 10^3/uL (1.5-7.6); Eosinophil % 1.1 %; Hemoglobin 15.3 g/dL (13.2-16.3); Lymphocyte % 35.5 %; Mean Corpuscular Hemoglobin 34.5 pg (27-33); Mean Corpuscular Hgb Conc 35.6 g/dL (31-36); Mean Platelet Volume 7.8 fL (7.5-11.2); Platelet Count 231 10^3/uL (150-450); Red Blood Count 4.43 10^6/uL (4.06-5.63); Red Cell Distribution Width 14.2 % (12-17)
[2024-06-23 15:05] LABS: Urine Appearance Clear; Urine Bilirubin Negative (Negative); Urine Blood Negative (Negative); Urine Color Light-Yellow; Urine Glucose Negative (Negative); Urine Ketones Trace (Negative); Urine Nitrite Negative (Negative); Urine Protein Negative (Negative); Urine Specific Gravity 1.005 (1.002-1.030); Urine Urobilinogen Negative (Negative); Urine pH 5.5 (5.0-8.0)
[2024-06-23] MEDS: Pantoprazole VIAL 40 MG VIAL IV ONE (15:08)
[2024-06-23] MEDS: Thiamine 100 MG/ML 2 ml VIAL (200 mg) IM ONE (15:08)
[2024-06-23] MEDS: diazePAM INJ CARPUJECT 5 MG/ML SYRINGE IV ONE ×2 (15:09→15:50)
[2024-06-23] MEDS: Acetaminophen IV 1 GM/100ML 1,000 MG/100 ML BAG IV ONE (15:09)
[2024-06-23] MEDS: diazePAM INJ CARPUJECT 5 MG/ML SYRINGE IV SCH (15:40)
[2024-06-23 15:59] LABS: Albumin 4.6 g/dL (3.2-5.2); Albumin/Globulin Ratio 1.9 (1-3); C Reactive Protein 1.32 mg/L (<8.01); Calcium 8.6 mg/dL (8.6-10.3); Creatinine, Serum 0.85 mg/dL (0.67-1.17); Globulin 2.4 g/dL (2-4); Potassium 3.2 mmol/L (3.5-5.0); Total Bilirubin 0.5 mg/dL (0.2-1.0); eGFR CKD-EPI 114.1 (>60)
[2024-06-23] MEDS: Iohexol 300 (CONTRAST) 10 ML SDV IV ONE (16:48)
[2024-06-23] MEDS ORDERED: Senna TAB 8.6 mg TAB PO PRN (18:16)
[2024-06-23] MEDS ORDERED: Naloxone Nasal Spray 4 MG/0.1 ML NASAL.SPR INTRANASAL PRN (18:22)
[2024-06-23] MEDS: Lactated Ringers 1000 ml BAG 1,000 ML IV SCH ×2 (19:19→19:38)
[2024-06-23] MEDS: HYDROmorphone 0.5 MG/0.5 ML SYRINGE IV SLOW PU PRN (19:38)
[2024-06-23] MEDS: HYDROmorphone 1 MG/1 ML SYRINGE IV SLOW PU PRN (21:25)
[2024-06-24] MEDS: Ondansetron 4 mg VIAL 2 MG/ML 2 ml VIAL IV PRN (03:45)
[2024-06-24] MEDS ORDERED: HYDROmorphone 1 MG/1 ML SYRINGE IV SLOW PU PRN ×3 (04:10→09:40)
[2024-06-24] MEDS: HYDROmorphone 1 MG/1 ML SYRINGE IV SLOW PU PRN ×3 (06:07→19:50)
[2024-06-24] MEDS: HYDROmorphone 0.5 MG/0.5 ML SYRINGE IV SLOW PU PRN (07:59)
[2024-06-24] MEDS: Venlafaxine XR 75 mg PO SCH (09:56)
[2024-06-24] MEDS: Multivitamins/Minerals TAB PO SCH (09:57)
[2024-06-24 10:28] LABS: ABS Eosinophils 0.1 10^3/uL (0.0-0.5); ABS Lymphocytes 1.4 10^3/uL (1.0-4.8); ABS Monocytes 0.2 10^3/uL (0.0-1.1); ABS Neutrophils 2.7 10^3/uL (1.5-7.6); Eosinophil % 1.4 %; Hematocrit 40.8 % (38-53); Hemoglobin 14.2 g/dL (13.2-16.3); Lymphocyte % 31.9 %; Mean Corpuscular Hgb Conc 34.7 g/dL (31-36); Mean Corpuscular Volume 98.1 fL (80-97); Mean Platelet Volume 7.9 fL (7.5-11.2); Nucleated Red Blood Cells % 0.1 %/100WBC (0.0-0.8); Platelet Count 204 10^3/uL (150-450); Red Blood Count 4.16 10^6/uL (4.06-5.63); Red Cell Distribution Width 14.1 % (12-17); White Blood Count 4.4 10^3/uL (3.6-10.2)
[2024-06-24 10:42] LABS: INR 1.01 (0.85-1.14)
[2024-06-24 11:55] LABS: Albumin 4.1 g/dL (3.2-5.2); Albumin/Globulin Ratio 2.1 (1-3); Calcium 8.3 mg/dL (8.6-10.3); Creatinine, Serum 0.88 mg/dL (0.67-1.17); Magnesium 1.5 mg/dL (1.9-2.7); Potassium 3.6 mmol/L (3.5-5.0); Total Bilirubin 0.9 mg/dL (0.2-1.0); Total Protein 6.1 g/dL (6.4-8.9); eGFR CKD-EPI 112.9 (>60)
[2024-06-24] MEDS: PHENobarbital IV 500 MG in NS 0.9% 100 ml BAG 100 ML IV ONE (17:21)
[2024-06-24] MEDS: Magnesium Sulfate 2 gm BAG 2 GM/50 ML BAG IVPB ONE (17:55)
[2024-06-25 06:58] LABS: Hematocrit 38.7 % (38-53); Hemoglobin 13.5 g/dL (13.2-16.3); Mean Corpuscular Hemoglobin 34.3 pg (27-33); Mean Corpuscular Volume 98.2 fL (80-97); Mean Platelet Volume 8.7 fL (7.5-11.2); Platelet Count 167 10^3/uL (150-450); Red Blood Count 3.94 10^6/uL (4.06-5.63); Red Cell Distribution Width 13.6 % (12-17); White Blood Count 3.7 10^3/uL (3.6-10.2)
[2024-06-25 07:36] LABS: Anion Gap 8 mmol/L (2-16); Blood Urea Nitrogen 6 mg/dL (6-24); CO2 Carbon Dioxide 30 mmol/L (22-32); Calcium 8.2 mg/dL (8.6-10.3); Chloride 100 mmol/L (101-111); Creatinine, Serum 0.89 mg/dL (0.67-1.17); Glucose 140 mg/dL (70-100); Magnesium 1.9 mg/dL (1.9-2.7); Sodium 138 mmol/L (135-145); eGFR CKD-EPI 112.5 (>60)
[2024-06-25 11:25] LABS: Albumin 3.9 g/dL (3.2-5.2)
[2024-06-25] MEDS ORDERED: PHENobarbital IV 65 MG/ML 1 ml VIAL IVPB ONE (16:38)
[2024-06-25] MEDS: HYDROmorphone 1 MG/1 ML SYRINGE IV SLOW PU PRN (16:42)
[2024-06-25] MEDS: PHENobarbital IV 130 MG in NS 0.9% 100 ml BAG 100 ML IVPB ONE (17:58)
[2024-06-26 06:53] LABS: ABS Eosinophils 0.1 10^3/uL (0.0-0.5); ABS Lymphocytes 1.3 10^3/uL (1.0-4.8); ABS Monocytes 0.3 10^3/uL (0.0-1.1); ABS Neutrophils 2.1 10^3/uL (1.5-7.6); Eosinophil % 3.3 %; Hematocrit 40.1 % (38-53); Hemoglobin 14.1 g/dL (13.2-16.3); Lymphocyte % 33.8 %; Mean Corpuscular Hemoglobin 34.3 pg (27-33); Mean Corpuscular Hgb Conc 35.2 g/dL (31-36); Mean Corpuscular Volume 97.6 fL (80-97); Mean Platelet Volume 8.4 fL (7.5-11.2); Platelet Count 176 10^3/uL (150-450); Red Cell Distribution Width 13.9 % (12-17); White Blood Count 3.7 10^3/uL (3.6-10.2)
[2024-06-26 07:29] LABS: Calcium 8.8 mg/dL (8.6-10.3); Creatinine, Serum 0.8 mg/dL (0.67-1.17); Magnesium 1.9 mg/dL (1.9-2.7); Potassium 3.6 mmol/L (3.5-5.0); eGFR CKD-EPI 116.2 (>60)
[2024-06-26] MEDS: PHENobarbital IV 130 MG in NS 0.9% 100 ml BAG 100 ML IVPB ONE (07:36)
[2024-06-26 09:44] VITALS: BP 177/121
== END 2024-06-26 10:10 | disposition home or self-care (01) ==
LOC: ED 13:42 → EDHOLD 13:42 → MED 18:16
PROVIDERS: ADMIT Student in an Organized Health Care Education/Training Program; ATTEND Student in an Organized Health Care Education/Training Program

== ENCOUNTER 2024-06-28 12:26 | Observation (INO) ==
[2024-06-28] MEDS: diazePAM INJ CARPUJECT 5 MG/ML SYRINGE IV ONE (13:26)
[2024-06-28] MEDS ORDERED: LORazepam 2 mg VIAL 1 ml ONE (13:51)
[2024-06-28] MEDS: LORazepam 2 mg VIAL 1 ml IV PUSH ONE (14:00)
[2024-06-28] MEDS: Acetaminophen IV 1 GM/100ML 1,000 MG/100 ML BAG IV ONE (14:01)
[2024-06-28 14:10] LABS: Hematocrit 47.3 % (38-53); Hemoglobin 16.6 g/dL (13.2-16.3); Mean Corpuscular Hemoglobin 34.5 pg (27-33); Mean Corpuscular Hgb Conc 35.1 g/dL (31-36); Mean Corpuscular Volume 98.5 fL (80-97); Platelet Count 242 10^3/uL (150-450); Red Cell Distribution Width 14.2 % (12-17); White Blood Count 4.9 10^3/uL (3.6-10.2)
[2024-06-28 14:44] LABS: High Sens Troponin Baseline 4 pg/mL (<20)
[2024-06-28 14:54] LABS: ALT 110 U/L (7-52); AST 177 U/L (13-39); Albumin 4.7 g/dL (3.2-5.2); Albumin/Globulin Ratio 1.7 (1-3); Alkaline Phosphatase 113 U/L (35-149); Anion Gap 12 mmol/L (2-16); Blood Urea Nitrogen 8 mg/dL (6-24); CO2 Carbon Dioxide 22 mmol/L (22-32); Calcium 8.8 mg/dL (8.6-10.3); Chloride 108 mmol/L (101-111); Creatinine, Serum 0.64 mg/dL (0.67-1.17); Globulin 2.7 g/dL (2-4); Glucose 109 mg/dL (70-100); Lipase < 10 U/L (11.0-82.0); Potassium 3.8 mmol/L (3.5-5.0); Sodium 142 mmol/L (135-145); Total Bilirubin 0.4 mg/dL (0.2-1.0); Total Protein 7.4 g/dL (6.4-8.9); eGFR CKD-EPI 124.3 (>60)
[2024-06-28] MEDS: Morphine 4 MG/ML VIAL (1 ml) IV ONE (15:16)
[2024-06-28] MEDS: Iohexol 300 (CONTRAST) 10 ML SDV IV ONE (15:35)
[2024-06-28 16:45] LABS: High Sensitivity Troponin 1 Hr 95 pg/mL (<20)
[2024-06-28] MEDS: HYDROmorphone 1 MG/1 ML SYRINGE IV SLOW PU ONE ×2 (17:10→20:15)
[2024-06-28 17:32] LABS: Alcohol, S 363 mg/dL (<13)
[2024-06-28 17:49] LABS: High Sensitivity Troponin 3 Hr 5 pg/mL (<20)
[2024-06-28] MEDS: NS 0.9% 250 ml 250 ML IVPB ONE (20:15)
[2024-06-28] MEDS ORDERED: HYDROcodone/ACETAMIN 5/325 mg TAB PO PRN (20:26)
[2024-06-28] MEDS: Enoxaparin 40 MG/0.4 ML SYR SUBCUT ONE (20:56)
[2024-06-28] MEDS: Multivitamins/Minerals TAB PO SCH (22:08)
[2024-06-28] MEDS: Thiamine 100 MG/ML 2 ml VIAL (200 mg) IM ONE (22:10)
[2024-06-28] MEDS: Morphine 2 MG/ML SYRINGE IV PRN (22:53)
[2024-06-28] MEDS: Ondansetron 4 mg VIAL 2 MG/ML 2 ml VIAL IV PRN (23:23)
[2024-06-29] MEDS: HYDROcodone/ACETAMIN 5/325 mg TAB PO PRN (00:44)
[2024-06-29] MEDS: Nicotine PATCH 14 MG/24 HR PATCH TRANSDERM SCH (01:12)
[2024-06-29] MEDS ORDERED: HYDROmorphone 1 MG/1 ML SYRINGE IV SLOW PU PRN (01:14)
[2024-06-29 05:23] LABS: ABS Eosinophils 0.1 10^3/uL (0.0-0.5); ABS Lymphocytes 1.7 10^3/uL (1.0-4.8); ABS Monocytes 0.3 10^3/uL (0.0-1.1); ABS Neutrophils 3.3 10^3/uL (1.5-7.6); Eosinophil % 1.3 %; Hematocrit 41.5 % (38-53); Hemoglobin 14.5 g/dL (13.2-16.3); Lymphocyte % 32.2 %; Mean Corpuscular Hemoglobin 34.5 pg (27-33); Mean Corpuscular Hgb Conc 34.9 g/dL (31-36); Mean Corpuscular Volume 98.8 fL (80-97); Platelet Count 207 10^3/uL (150-450); Red Cell Distribution Width 14.6 % (12-17); White Blood Count 5.4 10^3/uL (3.6-10.2)
[2024-06-29 06:09] LABS: Calcium 8.4 mg/dL (8.6-10.3); Creatinine, Serum 0.76 mg/dL (0.67-1.17); Magnesium 1.7 mg/dL (1.9-2.7); Potassium 3.5 mmol/L (3.5-5.0)
[2024-06-29] MEDS: Venlafaxine XR 75 mg PO SCH (07:57)
[2024-06-29] MEDS: Pantoprazole VIAL 40 MG VIAL IV SCH (08:01)
[2024-06-29] MEDS: Magnesium Sulfate 2 gm BAG 2 GM/50 ML BAG IVPB ONE (08:01)
[2024-06-29] MEDS ORDERED: Polyethylene Glycol 3350 17 GM PACKET PO PRN (09:56)
[2024-06-29] MEDS ORDERED: Senna TAB 8.6 mg TAB PO PRN (09:57)
[2024-06-29] MEDS ORDERED: Regadenoson 0.4 MG/5 ML SYRINGE ONE (12:47)
[2024-06-29] MEDS ORDERED: Aminophylline 25 MG/ML VIAL ONE (12:47)
[2024-06-29 17:13] VITALS: BP 162/92
== END 2024-06-29 17:30 | disposition home or self-care (01) ==
LOC: EDHOLD 12:26 → ED 12:26 → SUATTDRO 20:20 → MEDTELE 06-29 10:54
PROVIDERS: ADMIT Internal Medicine; ATTEND Hospitalist

== ENCOUNTER 2024-07-06 14:17 | Observation (INO) ==
[2024-07-06] MEDS ORDERED: Lorazepam PYXIS KEY PRN ×3 (14:28→17:24)
[2024-07-06] MEDS: LORazepam 2 mg VIAL 1 ml IV PUSH ONE ×3 (14:37→17:41)
[2024-07-06] MEDS: Thiamine 100 MG/ML 2 ml VIAL 100 MG, Folic Acid IV 1 MG, Multiple Vitamin IV ADULT 10 M... IV ONE (18:38)
[2024-07-06] MEDS: oxyCODONE/Acetamin 5/325 mg TAB PO PRN (18:38)
[2024-07-06] MEDS: diazePAM INJ CARPUJECT 5 MG/ML SYRINGE IV SCH (19:37)
[2024-07-06] MEDS: Multivitamins/Minerals TAB PO SCH (21:20)
[2024-07-06] MEDS: Lactated Ringers 1000 ml BAG 1,000 ML IV ONE (21:21)
[2024-07-06] MEDS ORDERED: PHENobarbital IV 65 MG/ML 1 ml VIAL IVPB ONE (21:51)
[2024-07-06] MEDS: Metoprolol Tartrate 5 mg VIAL 5 ml VIAL (1 mg/ml) IV ONE (22:03)
[2024-07-06] MEDS: PHENobarbital IV 500 MG in NS 0.9% 100 ml BAG 100 ML IVPB ONE (22:29)
[2024-07-07] MEDS: Sucralfate 1 gm SUSP 1 GM/10 ML UDC PO SCH (00:19)
[2024-07-07 01:42] LABS: ABS Lymphocytes 2.1 10^3/uL (1.0-4.8); ABS Monocytes 0.4 10^3/uL (0.0-1.1); ABS Neutrophils 3.1 10^3/uL (1.5-7.6); ABS Nucleated RBC 0.01 10^3/ul; Eosinophil % 0.8 %; Hematocrit 40.6 % (38-53); Hemoglobin 14.1 g/dL (13.2-16.3); Lymphocyte % 37.1 %; Mean Corpuscular Hemoglobin 34.2 pg (27-33); Mean Corpuscular Hgb Conc 34.8 g/dL (31-36); Mean Corpuscular Volume 98.2 fL (80-97); Mean Platelet Volume 7.9 fL (7.5-11.2); Nucleated Red Blood Cells % 0.2 %/100WBC (0.0-0.8); Platelet Count 243 10^3/uL (150-450); Red Blood Count 4.14 10^6/uL (4.06-5.63); Red Cell Distribution Width 14.1 % (12-17); White Blood Count 5.6 10^3/uL (3.6-10.2)
[2024-07-07] MEDS: Potassium Chlor 20 meq TAB.ER PO SCH (01:56)
[2024-07-07] MEDS: Magnesium Sulfate 2 gm BAG 2 GM/50 ML BAG IVPB ONE (01:56)
[2024-07-07 02:03] LABS: Albumin 3.9 g/dL (3.2-5.2); Calcium 8.6 mg/dL (8.6-10.3); Creatinine, Serum 0.91 mg/dL (0.67-1.17); Magnesium 1.8 mg/dL (1.9-2.7); Phosphorus 3.4 mg/dL (2.5-5.0); Potassium 3.8 mmol/L (3.5-5.0); Total Bilirubin 0.8 mg/dL (0.2-1.0); Total Protein 5.9 g/dL (6.4-8.9); eGFR CKD-EPI 110.6 (>60)
[2024-07-07] MEDS: diazePAM INJ CARPUJECT 5 MG/ML SYRINGE IV ONE (04:35)
[2024-07-07] MEDS: HYDROmorphone 1 MG/1 ML SYRINGE IV SLOW PU ONE (05:09)
[2024-07-07 06:26] LABS: ABS Eosinophils 0.1 10^3/uL (0.0-0.5); ABS Lymphocytes 1.3 10^3/uL (1.0-4.8); ABS Monocytes 0.4 10^3/uL (0.0-1.1); ABS Neutrophils 3.2 10^3/uL (1.5-7.6); ABS Nucleated RBC 0.01 10^3/ul; Hematocrit 41.1 % (38-53); Hemoglobin 14.3 g/dL (13.2-16.3); Lymphocyte % 26.3 %; Mean Corpuscular Hemoglobin 34.6 pg (27-33); Mean Corpuscular Hgb Conc 34.8 g/dL (31-36); Mean Corpuscular Volume 99.5 fL (80-97); Mean Platelet Volume 8.5 fL (7.5-11.2); Nucleated Red Blood Cells % 0.1 %/100WBC (0.0-0.8); Platelet Count 237 10^3/uL (150-450); Red Blood Count 4.13 10^6/uL (4.06-5.63); Red Cell Distribution Width 13.5 % (12-17)
[2024-07-07 07:14] LABS: Albumin/Globulin Ratio 1.9 (1-3); Calcium 8.3 mg/dL (8.6-10.3); Creatinine, Serum 0.91 mg/dL (0.67-1.17); Globulin 2.1 g/dL (2-4); Magnesium 1.9 mg/dL (1.9-2.7); Potassium 3.6 mmol/L (3.5-5.0); Total Protein 6.1 g/dL (6.4-8.9); eGFR CKD-EPI 110.6 (>60)
[2024-07-07] MEDS: Venlafaxine XR 75 mg PO SCH (08:02)
[2024-07-07 09:03] VITALS: BP 155/128
== END 2024-07-07 10:05 | disposition left against medical advice (07) ==
LOC: EDHOLD 14:17 → ED 14:17 → MEDTELE 20:12
PROVIDERS: ADMIT Internal Medicine; ATTEND Internal Medicine